=== PATIENT | male | born 1960 | race Caucasian/White ===

== ENCOUNTER → 2021-08-31 15:20 | Outpatient (CLI) | payer OTHER, SELFPAY ==
--- NOTE | 2021-08-31 15:22 | DI.MRI.S_ITS ---
PROCEDURE: MR LUMBAR SPINE WO CON INDICATIONS: Collapsed vertebra, not elsewhere classified, site TECHNIQUE: Noncontrast sagittal T1 spin echo and T2 fast echo, sagittal STIR, axial T1 and T2 fast spin echo through the lumbar spine. In cases with scoliosis, additional coronal T2 fast spin echo may be performed. COMPARISON: None. FINDINGS: Image quality: Excellent. Alignment and Curvature: Approximately 3 millimeter anterolisthesis of L4 on L5. Otherwise normal lumbar vertebral body height and alignment. Bone Marrow: Normal bone marrow signal intensity without suspicious focal marrow signal abnormality or bone marrow edema. Spinal Cord: Normal position and appearance of the conus. Regional Soft Tissues: No paravertebral masses. T12-L1: No spinal canal or neural foraminal stenosis. L1-L2: No spinal canal or neural foraminal stenosis. L2-L3: Disc bulge flattens the ventral thecal sac without mass effect upon the traversing L3 nerve roots. Foraminal components of the disc bulge and facet hypertrophy combine to produce mild bilateral neural foraminal stenosis. L3-L4: Disc bulge flattens the ventral thecal sac and displaces the descending L4 nerve roots within both subarticular zones. Foraminal components of the disc bulge and facet hypertrophy combine to produce mild bilateral neural foraminal stenosis. Small facet effusions noted. L4-L5: Disc bulge and a superimposed broad-based posterior disc protrusion combine with pseudo-bulge related to the anterolisthesis to produce severe spinal canal stenosis. There is also contribution from bulky facet hypertrophy and buckling of the ligamentum flavum. These factors all combine to produce moderate left and mild right neural foraminal stenosis. Large facet effusion on the right. L5-S1: Disc bulge flattens the ventral thecal sac. No mass effect upon the S1 nerve roots. No neural foraminal stenosis. IMPRESSION: Multifactorial degenerative changes in the lower lumbar spine, most pronounced at L4-L5 where there is degenerative anterolisthesis combining with spondylitic and spondyloarthropathic changes to produce severe spinal canal stenosis and moderate left neural foraminal stenosis. Dictated by: Mateo Hidalgo M.D. on 08/31/2021 at 15:05 Approved by: Mateo Hidalgo M.D. on 08/31/2021 at 15:14
== END ==
PROVIDERS: Referring Provider Orthopaedic Surgery Orthopaedic Surgery of the Spine; Visit Provider Orthopaedic Surgery Orthopaedic Surgery of the Spine
DX: M47.816 Spondylosis without myelopathy or radiculopathy, lumbar region (principal); M48.50XS Collapsed vertebra, not elsewhere classified, site unspecified, sequela of fracture; M48.061 Spinal stenosis, lumbar region without neurogenic claudication
CPT/HCPCS: 72148

== ENCOUNTER → 2021-10-12 14:15 | Outpatient (CLI) | payer OTHER, SELFPAY ==
[2021-10-12 15:09] LABS: Add Manual Diff / Slide Review NO; Basophils Absolute Auto 100 /uL (0-100); Basophils Percent Auto 0.9 % (0-2); Eosinophils Absolute Auto 100 /uL (0-450); Eosinophils Percent Auto 1.8 % (2-4); Hematocrit 48.4 % (41-53); Hemoglobin 16.5 g/dL (13.5-17.5); Lymphocytes Absolute Auto 1600 /uL (1100-4500); Lymphocytes Percent Auto 20.7 % (25-40); Mean Corpuscular Hemoglobin 33.6 PG (26-34); Mean Corpuscular Volume 98.8 fL (80-100); Monocytes Absolute Auto 900 /uL (0-900); Neutrophils Absolute Auto 5000 /uL (1500-7000); Neutrophils Percent Auto 64.6 % (50-75); Platelet Count 174 X10^3/uL (150-400); Red Blood Cell Count 4.89 X10^6/uL (4.5-5.9); Red Cell Distribution Width 13.4 % (11.6-14.8); White Blood Cell Count 7.8 X10^3/uL (4.5-11.0)
[2021-10-12 15:27] LABS: BUN Creatinine Ratio 38.2 (6-22); Blood Urea Nitrogen 29 mg/dL (9-20); Calcium 9.3 mg/dL (8.4-10.2); Carbon Dioxide 28 mmol/L (22-32); Chloride 102 mmol/L (98-107); Estimated Glomerular Filt Rate > 60.0 mL/min (>60); Glucose 129 mg/dL (80-110); HEMOLYSIS < 15 (0-50); Potassium 4.3 mmol/L (3.4-5.1); Sodium 139 mmol/L (137-145)
[2021-10-12 15:44] LABS: Hemoglobin A1C% w Est Avg Glu 5.7 % (4.0-6.0)
== END ==
PROVIDERS: PCP Family Medicine; Referring Provider Orthopaedic Surgery Orthopaedic Surgery of the Spine; Visit Provider Orthopaedic Surgery Orthopaedic Surgery of the Spine
DX: Z01.812 Encounter for preprocedural laboratory examination (principal); Z01.818 Encounter for other preprocedural examination; R73.9 Hyperglycemia, unspecified
CPT/HCPCS: 36415; 80048; 83036; 85025; 93005; 93010

== ENCOUNTER 2021-11-15 12:51 | Day surgery (SDC) | payer OTHER, SELFPAY ==
[2021-10-10 08:38] VITALS: BMI 35.3
[2021-11-15] VITALS (17 sets, daily range): BP systolic 142–190; BP diastolic 78–112; PULSE 73–87; RESP 12–18; TEMP 36.3–37.9; O2SAT 92–98; BMI 34.3
--- NOTE | 2021-11-15 | DI.RAD.S_ITS ---
PROCEDURE: XR LUMBAR SPINE 2-3V INDICATIONS: L4-5 TLIF TECHNIQUE: 3 views of the lumbar spine were acquired. COMPARISON: None. FINDINGS: Bones: Postsurgical changes compatible with L4-L5 TLIF. Orthopedic hardware is in expected position. Orthopedic hardware is intact. Soft tissues: Overlying bowel gas pattern is normal. No suspicious soft tissue calcifications. IMPRESSION: Expected postsurgical change for L4-L5 TLIF. Dictated by: Patricia Durham MD, PhD on 11/16/2021 at 9:56 Approved by: Patricia Durham MD, PhD on 11/16/2021 at 9:56
[2021-11-15] MEDS: LACTATED RINGERS 1,000 ML 42 ML IV ×2 (13:48→16:37)
--- NOTE | 2021-11-15 15:22 | PM.HP.1 ---
History of Present Illness History of Present Illness Date Patient Seen: 11/15/21 Time Patient Seen: 15:22 Date of Onset of Symptoms: 04/04/21 Chief complaint: OPB Narrative: Mr. Slaughter is a 61 yo M with hx of worsening left leg pain, weakness and numbness. Patient failed conservative care and is scheduled for L4-5 TLIF. Patient History Medical History Arthritis CAD (coronary artery disease) Excessive daytime sleepiness HLD (hyperlipidemia) Hypertension Impaired fasting glucose Lumbar pain with radiation down both legs Non-STEMI (non-ST elevated myocardial infarction) (11/2013) Obstructive sleep apnea of adult Primary insomnia Sciatica Tobacco dependence due to cigarettes Surgical History S/P CABG (coronary artery bypass graft) (2013) Family & Social History Social History: household members none Prior Living Arrangements House lives independently Yes caregiver/support person No Safety & Behavioral: Feels Safe in Current Yes Environment Been Physically Hurt or No Threatened By a Person Suicidal Ideation Description None Suicide Plan Description No Plan Tobacco & Substance use: Tobacco type cigarettes Smoking Status Current every day smoker alcohol intake current alcohol intake frequency 0-2 drinks per day Substance Use Type does not use Meds Home Medications and Allergies Home Medications Medication Instructions Recorded Confirmed Type losartan 25 mg tablet 25 mg PO QPM 05/06/18 11/15/21 History pravastatin 80 mg tablet 80 mg PO DAILY 05/06/18 11/15/21 History Respironics Dreamstation CPAP #1 ea 11/20/18 02/17/19 History acetaminophen 650 mg 1,300 mg PO BID 10/10/21 11/15/21 History tablet,extended release aspirin 81 mg tablet,delayed 81 mg PO BID 10/10/21 11/15/21 History release (Aspirin Low Dose) ibuprofen 200 mg tablet (Advil) 400 mg PO BID 10/10/21 11/15/21 History losartan 50 mg tablet 50 mg PO QAM 10/10/21 11/15/21 History metoprolol succinate 50 mg 25 mg PO BID 10/10/21 11/15/21 History tablet,extended release 24 hr bupropion HCl 75 mg tablet 75 mg PO BID 11/15/21 11/15/21 History Allergies Allergy/AdvReac Type Severity Reaction Status Date / Time Penicillins Allergy Severe Rash Verified 11/15/21 13:25 Exam Vital Signs (past 8 hours): - 11/15/21 13:29 Temperature 98.2 F Pulse Rate 87 Respiratory Rate 16 Blood Pressure 184/98 H Pulse Oximetry 96 Oxygen Delivery Method Room Air Oxygen Flow Rate 0 Neuro Other: + straight leg raise to LLE, sensibility decreased to left L4 dermatome, motor strength 4/5 in left TA and EHL. Assessment & Plan Assessment & Plan narrative: Mr. Slaughter is here for treatment of lumbar radiculopathy due to spinal stenosis and spondylolisthesis at L4-5 level. Risks for surgery include but not limited to bleeding, infection, nerve/dura/bladder/bowel/blood vessel injury, need for additional procedure, even . Pt understands and would like to proceed with surgery. I scheduled him for L4-5 TLIF. Time Spent With Patient Critical Care time: I spent a total of [] minutes of critical care time on this patient's care today; this time is exclusive of procedural time.
[2021-11-15] MEDS: CLINDAMYCIN 900 MG/50 ML PIGGYBACK 50 MG IV (15:48)
--- NOTE | 2021-11-15 16:07 | SUR.OPER ---
Prone on spine table, head in foam head support, padded chest and pelvic supports, gel pad at knees, lower legs supported by pillows; nipples, genitalia and toes free of pressure, arms secured on foam padded arm boards at <90 degrees abduction. Tape over blanket at thigh secured to table.
[2021-11-15] MEDS: BUPIVACAINE LIPOSOME 266 MG/20 ML VIAL INJ (16:18)
[2021-11-15] MEDS: BUPIVACAINE 0.25% W/ EPI 30 ML VIAL INJ (16:19)
--- NOTE | 2021-11-15 17:54 | P.OP_ITS ---
Operative Date/Time/Diagnoses Date of procedure: 11/15/21 Time of procedure: 15:00 Pre-op diagnosis: 1. L4-5 spondylolisthesis 2. L4-5 spinal stenosis with radiculopathy Post-op diagnosis: same Procedure & Clinicians Procedure: 1. L4-5 Postero-lateral and posterior interbody fusion 2. L4-5 interbody cage placement. 3. L4-5 decompressive laminectomy with bilateral facetecomies 4. L4-5 Posterior non-segmental instrumentation 5. [place] of bone marrow from iliac crest 6. Utilization of microsurgical technique and operating microscope Same procedure as scheduled: Yes Indications: Patient has been having chronic back pain and worsening lumbar radiculopathy. Patient failed multiple conservative management with worsening pain weakness and numbness in her lower extremity. Patient has been having difficulty performing activity of daily living. After discussing risks benefits of treatment options, patient elected proceed with surgery. Surgeon: Joy Saez Hoisting Pile Driving Engineer: Joslyn Radford Click Yes if Unassisted: No Anesthesia Type: General Operative Notes Closure Type: primary Specimen(s): none sent Prosthetic devices, grafts, tissues, transplants, or devices: Globus Revolve screws, Rise cage Estimated Blood Loss (mL): 50 Blood products transfused: none Procedure in detail: Patient was seen in the preoperative area. Risks and benefits of the surgery was discussed with the patient. Informed consent was obtained from the patient and placed in the chart. Surgical site was marked. Patient was taken to the operative room. General anesthesia was administered. Prophylactic antibiotic was given to the patient less than 30 min before the incision was made. Patient was placed into a prone position on the Steven table. Patient's back was then prepped and draped in the sterile fashion. Time-out was performed at this time. Using AP and lateral C-arm imaging the interval between L4-5 was identified and marked on patient's back. A 2 inch incision 2 in from midline was made on the left side first. The fascia was incised in line with skin incision. Globus MARS retractors was placed inside the incision and docked onto the L4 lamina. Using microsurgical technique and operating microscope, a L4 laminectomy and L4-5 fac etectomy was performed using a Kerrison rongeur. The disc space at L4-5 was identified. And a total diskectomy was performed at L4-5 level. The endplates were decorticated using a rasp and shaver. Patient was found have severe central and neuroforaminal stenosis. Patient was fully decompressed after the laminectomy and facetectomy was completed. The decompression rendered the L4-5 level grossly unstable and required a fusion procedure at the same time. The total diskectomy and decortication was performed at L4-5 level in order to to accomplish a L4-5 fusion. The local bone from the laminectomy and facetectomy was saved for local bone grafting. After the total diskectomy and decortication was completed, Trifecta bone graft material was combined with local bone that was harvested earlier. At this time, a separate skin is incision was made over the iliac crest. A Jamshidi needle was inserted into the iliac crest through a separate skin incision. 5 cc of bone marrow aspiration was obtained through the separate skin incision using a Jamshidi needle from the iliac crest. The bone marrow aspiration was combined with local bone and the Trifecta bone grafting material. The bone grafting material was placed into the L4-5 interbody space along with a expandable cage. The cage was expanded to its maximum height using the torque limiting screwdriver. At this time a mirror image incision was made on the right side. The fascia was incised in line with the skin incision. Globus MARS retractor was inserted and docked onto the L4-5 posterolateral gutter. Using the power drill, posterior- lateral decortication was performed at L4-5 level until bleeding cortical bone was identified. The remaining bone grafting material was placed into the L4-5 posterior lateral gutter he order to accomplish posterolateral fusion at the L4- 5 level. Using the double C-arm technique, pedicle screws were placed into the L4-5 pedicles bilaterally. This was done by placing the Jamshidi needle into the pedicles, then placing the guidewires over the Jamshidi needle, and finally placing the cannulated screws over the guidewires bilaterally. After the pedicle screws were placed, 2 titanium rods was locked into the heads of the pedicle screws using locking caps and torque limiting screwdriver. After all the hardware was placed, and confirmed with AP and lateral C-arm imaging, the wound was then irrigated with sterile normal saline and packed with Ray-Jessi gauze for 3 min to accomplish hemostasis. After the gauze was removed the deep fascia was closed with #1 Vicryl suture. The subcutaneous layer was closed with 2-0 Vicryl. The skin was closed with skin neto. Patient tolerated the procedure well. There were no complications. Complications: none Post-operative Condition: stable Disposition: PACU Plan for aftercare: Admit to inpatient hospital
[2021-11-15] MEDS: HYDROMORPHONE 2 MG INJ IV ×4 (18:15→18:50)
[2021-11-15] MEDS: LABETALOL 20 MG/4 ML SYRINGE IV (18:35)
[2021-11-15] MEDS: OXYCODONE/ACETAMINOPHEN 5/325 TABLET 1 TAB PO (19:09)
[2021-11-15] MEDS: SODIUM CHLORIDE 0.9% 1,000 ML 100 ML IV (20:11)
[2021-11-15] MEDS: HYDROMORPHONE 0.5 MG INJ IV (20:11)
--- NOTE | 2021-11-15 20:17 | SUR.PHASEI ---
11/15/21 Pacu NOTE 1810*-patient recieved from OR via bed. monitors on . vss. oxygen sats down at 93%-nasal canula applied at [address] Sommers's request-due to sleep apnea history/no cpap used. dressing on back cdi. no drains. Facial area skin redness noted-patient states came on yesterday-cause unknown. 1814-patients temperture and skin feel warm/dry. mottled patches on back and front/back of legs noted. PSYCHIATRIC TECHNICIAN ASSISTANT not recieving RN, unaware, ? positioning. continue to monitor. patient denies pain, but relates it to pressure in back,tense and flexing/moving around. Dr Jara to write orders. 1829-overriding medications and attempting to rewrite orders in computer for pacu care, due to technical issues with MD's code. Titration of dilaudid for pain, and now labetalol for bp done. Repositioned to rt side wwith pillows to assist with comfort. continue to titrate Dilaudid ivp. 1899-mottling colorations lighting up but now noted lower abdomen/back/legs. temperture rechecked prn and wnl. patient denies being cold .skin warm and dry. 1919-Report called to floor. BP down wnl for patient per anesthesia after 2 nd dose of labetalol. patient remains wide awake,alert,oriented. more comofortable and resting on side-pain 4/10. no periods of apnea or desating. Remains on 2l nc.dentures (Up/lower) reworn by patient now. Transferred to room on 2l oxygen nc via bed. 2 bags of belongings. no family he reports til am. csm remain good to ble. dressing on back cdi. 1929-handoff in room done with RN. Patient had 250 ml in . now feels like can pee. VEHICLE MONITOR TECHNICIAN at side to assist. Pacu Meds/Reassessment: recieved total 2 mg iv dilaudid for pain, 2o mgs labetalol for htn. percocet 1 tab for pain. all effective. BP on transfer 164/95. HR 78. pain 4/10 & Relates feels better.
[2021-11-15] MEDS: SENNOSIDES 8.6 MG TABLET 17.2 MG PO (21:29)
[2021-11-15] MEDS: DOCUSATE 100 MG CAPSULE PO (21:29)
[2021-11-15] MEDS: buPROPion 75 MG TABLET PO (21:29)
[2021-11-15] MEDS: METOPROLOL ER 50 MG TABLET 25 MG PO (21:29)
[2021-11-16 00:10] VITALS: BP 138/76; PULSE 78; RESP 16; TEMP 36.6; O2SAT 92
[2021-11-16] MEDS: CLINDAMYCIN 900 MG/50 ML PIGGYBACK 50 MG IV ×2 (00:58→09:50)
[2021-11-16] MEDS: OXYCODONE/ACETAMINOPHEN 5/325 TABLET 2 TAB PO ×3 (02:20→12:20)
[2021-11-16 04:29] VITALS: BP 144/83; PULSE 79; RESP 16; TEMP 36.8; O2SAT 96
--- NOTE | 2021-11-16 07:27 | PM.DS.1 ---
History of Present Illness History of Present Illness Date Patient Seen: 11/16/21 Time Patient Seen: 07:27 Chief complaint: Back pain Narrative: Pain is been [id number]. Denies fever or chills. No nausea or vomiting. Patient has his son at home who can assist him. Discharge Providers Provider Discharge Date: 11/16/21 Primary care physician: Linda Leroy MD Consults: 11/15/21 19:50 Consult to Occupational Therapy Evaluate & Treat Comment: Physician Instructions: Evaluate and treat Consult to Physical Therapy Evaluate & Treat Comment: Physician Instructions: Evaluate and Treat Discharge provider: Fortunato Be PA-C Summary Hospital Course Discharge Diagnosis: 1. L4-5 spondylolisthesis 2. L4-5 spinal stenosis with radiculopathy Hospital Course: 1. L4-5 Postero-lateral and posterior interbody fusion 2. L4-5 interbody cage placement. 3. L4-5 decompressive laminectomy with bilateral facetecomies 4. L4-5 Posterior non-segmental instrumentation 5. [place] of bone marrow from iliac crest 6. Utilization of microsurgical technique and operating microscope Same procedure as scheduled: Yes Indications: Patient has been having chronic back pain and worsening lumbar radiculopathy. Patient failed multiple conservative management with worsening pain weakness and numbness in her lower extremity.? Patient has been having difficulty performing activity of daily living.? After discussing risks benefits of treatment options, patient elected proceed with surgery. Surgeon: Joy Saez Substation Design Draftsperson: Joslyn Radford Click Yes if Unassisted: No Anesthesia Type: General Operative Notes Closure Type: primary Specimen(s): none sent Prosthetic devices, grafts, tissues, transplants, or devices: Globus Revolve screws, Rise cage Estimated Blood Loss (mL): 50 Blood products transfused: none Patient admitted to the hospital for the above-mentioned procedure. Patient consented to the same. Patient taken to the operating room on November 15, 2021. Patient back in his room recovering well as in stable condition. Patient work with physical therapy and be discharged home today in stable condition. Status at Discharge Cognitive/behavioral status at discharge: at baseline, oriented Functional status at discharge: uses cane/walker Overall status at discharge: patient is progressing back to baseline Exam Vital Signs (past 8 hours): - 11/16/21 00:10 11/16/21 04:29 Temperature 97.9 F 98.2 F Pulse Rate 78 79 Respiratory Rate 16 16 Blood Pressure 138/76 144/83 H Pulse Oximetry 92 96 Oxygen Delivery Method Nasal Cannula Oxygen Flow Rate 2 Narrative Exam Narrative: 61-year-old male resting comfortably in bed in no apparent distress. Motor functions intact bilateral lower extremities. Sensation grossly intact to light touch bilateral lower extremities. Scant drainage on the dressing otherwise dressings are intact. Const General: cooperative Orientation: alert Resp Effort & Inspection: normal respiratory effort and able to speak in complete sentences PFSH Medical History Arthritis CAD (coronary artery disease) Excessive daytime sleepiness HLD (hyperlipidemia) Hypertension Impaired fasting glucose Lumbar pain with radiation down both legs Non-STEMI (non-ST elevated myocardial infarction) (11/2013) Obstructive sleep apnea of adult Primary insomnia Sciatica Tobacco dependence due to cigarettes Surgical History S/P CABG (coronary artery bypass graft) (2013) Social History marital status: number of children: 1 household members: none lives independently: Yes caregiver/support person: No occupational status: employed 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 Smoking Status: Current every day smoker alcohol intake: current substance use type: does not use Discharge Assessment & Plan Assessment and Plan Assessment: Patient progressing as expected Plan of Treatment: Mobilize with physical therapy, limit bending, lifting, twisting Multimodal pain management Discharge home today after physical therapy if safe for home environment Discharge Plan Discharge Plan Patient Disposition: Home Discharge orders & Medications Discharge Orders: Discharge (Order); Ordered 11/16/21 Ordered By: Fortunato Be Prescriptions: New acetaminophen 325 mg Tablet 650 mg PO Q6HR PRN (Reason: Pain, Mild (1-3)) Qty: 60 0RF docusate sodium 100 mg Capsule 100 mg PO BID Qty: 20 0RF hydroxyzine pamoate 25 mg Capsule 25 mg PO Q4HR PRN (Reason: Nausea And Vomiting) Qty: 30 0RF oxycodone 5 mg tablet 5 mg PO Q3H PRN (Reason: pain) Qty: 60 0RF Rx Instructions: 1-2 tabs PO every 3 hours prn pain Continued losartan 50 mg Tablet 50 mg PO QAM 0RF metoprolol succinate 50 mg Tablet Extended Release 24 Hr 25 mg PO BID 0RF bupropion HCl 75 mg Tablet 75 mg PO BID 0RF pravastatin 80 mg tablet 80 mg PO DAILY 0RF losartan 25 mg tablet 25 mg PO QPM 0RF (DME) Respironics Dreamstation CPAP Qty: 1 0RF Dose Instruction: As directed Label Comments: Pressure: 5-10 cmH2O DME: [facility] Rx Instructions: As directed Discontinued aspirin [Aspirin Low Dose] 81 mg Tablet,Delayed Release (Dr/Ec) 81 mg PO BID 0RF acetaminophen 650 mg Tablet Extended Release 1,300 mg PO BID 0RF ibuprofen [Advil] 200 mg Tablet 400 mg PO BID 0RF Follow up/Referrals: Linda Leroy MD [Primary Care Provider] - oJy Saez MD [Physician] - (2 weeks) Diet/Activity/Treatments Diet: Diet as Tolerated Activity: Limit bending, twisting, lifting Skin/Wound/Dressing Care Report to your healthcare provider any signs of infection, such as:: chills, fever, increased pain, unusual drainage and unusual redness Dressing: Keep dressing clean and dry Visit Report/Discharge Packet Instructions: DI for Transforaminal Lumbar Interbody Fusion Stand Alone Forms: Surgery Discharge Discharge Data Primary Care Provider: Linda Leroy Attending Provider: Joy Saez Quality VTE Deep Vein Thrombosis/Pulmonary Embolism Present on Admission: Yes
[2021-11-16 08:23] VITALS: BP 134/65; PULSE 70
[2021-11-16] MEDS: METOPROLOL ER 50 MG TABLET 25 MG PO (08:23)
[2021-11-16] MEDS: hydrOXYzine pamoate 25 MG CAPSULE PO (08:23)
[2021-11-16 08:26] VITALS: BP 134/65; BP 134/69; PULSE 70; RESP 14; TEMP 37.1; O2SAT 95
[2021-11-16] MEDS: LOSARTAN 50 MG TABLET PO (08:26)
[2021-11-16] MEDS: buPROPion 75 MG TABLET PO (08:26)
[2021-11-16] MEDS: DOCUSATE 100 MG CAPSULE PO (08:26)
--- NOTE | 2021-11-16 09:15 | PT.IIE ---
Current Diagnoses Spondylolisthesis, lumbar region (11/15/21) Spinal stenosis, lumbar region without neurogenic claudication (11/15/21) Surgery Performed Operation Date: 11/15/21 14:45 Actual Procedures p L4-5 TLIF - Joy Saez MD Medical History (Last Reviewed 11/16/21 @ 07:29 by Fortunato Be PA-C) Arthritis CAD (coronary artery disease) Excessive daytime sleepiness HLD (hyperlipidemia) Hypertension Impaired fasting glucose Lumbar pain with radiation down both legs Non-STEMI (non-ST elevated myocardial infarction) (11/2013) Obstructive sleep apnea of adult Primary insomnia Sciatica Tobacco dependence due to cigarettes Physical Therapy Inpatient Evaluation/Re-Eval M1 PT/OT-IP Prior Functional Status Start: 11/16/21 11:43 Freq: NEEDED Status: Active Protocol: Document 11/16/21 09:15 AB (Rec: 11/16/21 11:55 AB [id number]) Medical Review Prior Functional Status Medical History Reviewed Yes Communication able to make needs known Mobility and Gait pt stated that he is independent with all mobilities and ambulation without AD Social History Household Members none Living Arrangements House Number of Floors (Floors) One Floor Number of Stairs To Enter/Railing? 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 PT-IP Current Condition Start: 11/16/21 11:43 Freq: NEEDED Status: Active Protocol: Document 11/16/21 09:15 AB (Rec: 11/16/21 11:55 AB [id number]) Physical Therapy Current Condition Current Condition Evaluation Date 11/16/21 Treatment Diagnosis s/p L4-5 TLIF; difficulty in walking Onset Date 11/15/21 M3 PT-IP Subjective Start: 11/16/21 11:43 Freq: NEEDED Status: Active Protocol: Document 11/16/21 09:15 AB (Rec: 11/16/21 11:55 AB [id number]) Subjective Physical Therapy Visit Type Type Initial Evaluation Visit Start Time 09:15 Visit Stop Time 10:05 Total Visit Minutes 50 Number of DICTATING TRANSCRIBING MACHINE SERVICER Visits 0 Physical Therapy Visit Comments Patient Comments agreeable to do PT Therapy Pain Assessment Pain Present Pain Present Denied Pain M4 PT-IP Mobility and Gait Start: 11/16/21 11:43 Freq: NEEDED Status: Active Protocol: Document 11/16/21 09:15 AB (Rec: 11/16/21 11:55 AB [id number]) PT-Bed Mobility Assessment Rolling Type of Rolling Log Rolling Level of Assist Standby Assistance Supine to Sit Supine to Sit Standby Assistance Sit to Supine Sit to Supine Standby Assistance Scooting Scooting to Edge of Bed Standby Assistance PT-Transfer Assessment Sit to and From Stand Sit to and from Stand Standby Assistance Equipment Transfer Assistive Device Gait Belt,Front Wheeled Walker Orthotic/Prosthetic Devices or Brace: No Transfers Transfer Destination Toilet Transfer Technique ambulated Transfer Ability Level of Assist Standby Assistance,1 Person Assistance Comments Mobility Comments pt was standing up by his bed without AD but holding on to table with NAC in room. instructed pt to sit on EOB and educated on safety. educated pt on back precautions. pt requesting to use the toilet. completed sit to stand from EOB SBA and ambulated to the toilet using FWW SBA. educated on safety and maintain back precautions as pt tends to turn and twist. pt ambulated out towards the sink using FWW SBA and was able to maintain standing SBA while completing handwashing. pt ambulated to the chair SBA using FWW. pt rested and educated on log roll bed mobility. pt completed step transfer from chair to bed using FWW SBA. completed log roll bed mobility x 2 sets. SBA but required instructions on first attempt but able to do with lesser cues on 2nd attempt. pt ambulated in room ~ 75 ft using FWW SBA. pt agreed to sit on chair. positioned on chair. call light and table placed within reach. educated and reviewed precautions and safety with pt . pt without any concerns. informed nurse. Gait Assessment Gait Gait Assistance Required: Standby Assistance Distance (Feet) 75 Able to Maintain Weight Bearing Status Yes During Gait Assistive Devices Assistive Device Gait Belt,Front Wheeled Walker Orthotic/Prosthetic Devices or Brace: No Gait Deviations General Gait Pattern Decreased Stride Length, Decreased Feet Clearance Factors Limiting Gait Function Factors Limiting Gait Function Decreased Activity Tolerance, Decreased Strength,Limited Range of Motion,Pain,Poor Balance,Poor Safety Awareness PT-Balance Assessment Sitting Balance and Reactions Static Sitting Balance Ability Normal Dynamic Sitting Balance Ability Normal Standing Balance and Reactions Static Standing Balance Ability Good Dynamic Standing Balance Ability Fair Device Used FWW M5 PT-IP Objective Assessments Start: 11/16/21 11:43 Freq: NEEDED Status: Active Protocol: Document 11/16/21 09:15 AB (Rec: 11/16/21 11:55 AB [id number]) Orientation Orientation/Cognition Level of Alertness Alert Orientation Name,Age,Birthday,Month,Date, Year,Day of Week,Place, Situation Language Function Ability No Deficits Noted Safety Awareness Understands Safety Issues Memory Description No Deficits Noted Gross Range of Motion Lower Extremity ROM Assessment Within Functional Limits Strength Comments Strength Comments RLE: 4+/5 LLE: 4/5 Coordination Assessment Gross Coordination Gross Coordination WNL Sensation Assessment Sensation Gross Sensation WNL Muscle Tone Muscle Tone WNL Yes M6 PT-IP Treatment Start: 11/16/21 11:43 Freq: NEEDED Status: Active Protocol: Document 11/16/21 09:15 AB (Rec: 11/16/21 11:55 AB [id number]) Physical Therapy Treatment Education Education Provided Precautions,Weight Bearing Status,Post-Op Packet,Safety M7 PT-IP Assessment and Plan Start: 11/16/21 11:43 Freq: NEEDED Status: Active Protocol: Document 11/16/21 09:15 AB (Rec: 11/16/21 11:55 AB [id number]) PT Summary Assessment and Plan Potential Rehabilitation Potential Good Status of Condition at Evaluation Stable Summary Impairments Pain,ROM,Strength,Balance, Coordination,Sensation,Tone, Cognition,Bed Mobility, Transfers,Gait,Activity Tolerance Assessment Summary pt requiring SBA with mobility and plans to go home and son will stay with him for ~ 2 weeks to assist him. pt may go home when medically stable. Goals Bed Mobility Goal Independent Transfer Goal Independent,Front Wheeled Walker Gait Goal Independent,Front Wheel Walker Gait Distance 250 Days to Meet Goals 3 Frequency of Treatment Frequency Of Treatment Twice a Day Treatment Plan Physical Therapy Treatment Plan Bed Mobility Training,Transfer Training,Gait Training, Therapeutic Exercise,Balance Retraining,Post Op Education, Discharge Planning,Hot or Cold Pack,Neuromuscular Re-ed, Coordination Retraining,Manual Therapy Precautions Lumbar Precautions Log Roll,No Twisting,Limit Bending,Lifting Restriction of 10 lbs,Gait Belt above Incisional Area Recommendations To Nursing Amount of Assist Needed Standby Assistance Discharge Recommendations PT Discharge Recommendations Home with Assistance Transportation Needs at Discharge Private Vehicle
--- NOTE | 2021-11-16 10:50 | OT.IP.EVAL ---
Current Diagnoses Spondylolisthesis, lumbar region (11/15/21) Spinal stenosis, lumbar region without neurogenic claudication (11/15/21) Surgery Performed Operation Date: 11/15/21 14:45 Actual Procedures p L4-5 TLIF - Joy Saez MD Past Medical History (Last Reviewed 11/16/21 @ 07:29 by Fortunato Be PA-C) Arthritis CAD (coronary artery disease) Excessive daytime sleepiness HLD (hyperlipidemia) Hypertension Impaired fasting glucose Lumbar pain with radiation down both legs Non-STEMI (non-ST elevated myocardial infarction) (11/2013) Obstructive sleep apnea of adult Primary insomnia S/P CABG (coronary artery bypass graft) (2013) Sciatica Tobacco dependence due to cigarettes Surgical History (Last Reviewed 11/16/21 @ 07:29 by Fortunato Be PA-C) S/P CABG (coronary artery bypass graft) (2013) Occupational Therapy Inpatient Evaluation/Re-Eval M1 PT/OT-IP Prior Functional Status Start: 11/16/21 11:43 Freq: NEEDED Status: Active Protocol: Document 11/16/21 10:20 [facility] (Rec: 11/16/21 12:54 [facility] [id number]) Medical Review Prior Functional Status Medical History Reviewed Yes Communication able to make needs known Mobility and Gait pt stated that he is independent with all mobilities and ambulation without AD Activities of Daily Living and IADL's Pt states needing increased time to do his ADL needs and unable to adis left sock at this time. Pt states limited with IADl needs. Social History Household Members none Living Arrangements House Number of Floors (Floors) One Floor Number of Stairs To Enter/Railing? 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 OT-IP Current Condition Start: 11/16/21 10:55 Freq: Status: Active Protocol: Document 11/16/21 10:20 [facility] (Rec: 11/16/21 12:54 [facility] [id number]) Occupational Therapy Current Condition Current Condition Evaluation Date 11/16/21 Treatment Diagnosis s/p L4-5 TLIF Diagnosis Onset Date 11/15/21 Post Operative Precautions Lumbar Precautions Log Roll,No Twisting,Limit Bending,Lifting Restriction of 10 lbs,Gait Belt above Incisional Area M3 OT- IP Subjective and Pain Start: 11/16/21 10:55 Freq: Status: Active Protocol: Document 11/16/21 10:20 [facility] (Rec: 11/16/21 12:54 [facility] [id number]) OT- Subjective Occupational Therapy Visit Type Type Initial Evaluation Visit Start Time 10:20 Visit Stop Time 10:50 Total Visit Minutes 30 Occupational Therapy Visit Comments Patient Comments Pt agreed to work with OT in order to get dressed. Patient/Caregiver Goals To go home. OT Pain Assessment Pain When Pain Assessed At Rest Pain Present Pain Present Pain Reported Location Lower Back Intensity 4 Scale Used Numeric (0 - 10) M4 OT- IP ADL's Start: 11/16/21 10:55 Freq: Status: Active Protocol: Document 11/16/21 10:20 [facility] (Rec: 11/16/21 12:54 [facility] [id number]) OT OAJ-Hwtc-Nmsyayt General Evaluation Self-Feeding Ability Independent OT ADL-Dressing General Eval Upper Body Dressing Ability Independent Lower Body Dressing Ability Standby Assistance,Maximum Assistance Areas Needing Assistance Socks,Shoes Comments OT Dressing Comments Pt able to practice with LB dressing equipment to be able to adis/doff the socks/pants. Pt states to look into getting a sock aid. OT ADL-Bathing Comments OT Bathing Comments Pt not wanting to shower at this time. M5 OT- IP IADL's Start: 11/16/21 10:55 Freq: Status: Active Protocol: Document 11/16/21 10:20 [facility] (Rec: 11/16/21 12:54 [facility] [id number]) OT-Instrumental Activities of Daily Living Home Safety Awareness Awareness of Need for Assistance at Home Good Awareness Ability to Problem Solve Emergency Able to Problem Solve Situations Home Safety Comments Pt's son to be home to be able to assist pt for all needs. Meal Preparation Meal Preparation Caregiver Provides Assist Suit Maker Suit Maker Caregiver Provides Assist M6 OT- IP Functional Cognition Start: 11/16/21 10:55 Freq: Status: Active Protocol: Document 11/16/21 10:20 [facility] (Rec: 11/16/21 12:54 [facility] [id number]) Cognitive Factors Limiting Selfcare Function Cognitive Ability Level of Alertness Alert Patient Orientation Name,Age,Birthday,Month,Date, Year,Day of Week,Place, Situation Attention Span Ability Capable of Focused Attention, Capable of Sustained Attention Ability to Follow Commands Able to Follow Multi-Step Commands Memory Description No Deficits Noted Safety Awareness Decreased Ability to Apply Precautions Cognitive Comments Cognitive Assessment Comments Pt needing assist for reminders to incorporate his back precautions. Suggested to put on copies of his back precautions to help remind him at home. OT- Vision and Hearing OT- Hearing Assessment OT- Hearing Assessment WFL OT- Vision Assessment Visual Acuity Glasses For Reading M7 OT- IP Mobility and Balance Start: 11/16/21 10:55 Freq: Status: Active Protocol: Document 11/16/21 10:20 [facility] (Rec: 11/16/21 12:54 [facility] [id number]) OT- Bed Mobility Assessment Rolling Type of Rolling Roll to Right Level of Assistance Standby Assistance Supine to Sit Supine to Sit Assist Standby Assistance Sit to Supine Sit to Supine Assist Standby Assistance OT-Transfer Assessment Sit to and From Stand Sit to and from Stand Standby Assistance Transfers Transfer Ability Standby Assistance Technique Transfer Destination Chair Transfer Technique Stand Step Pivot Devices Transfer Assistive Devices None,Gait Belt Comments Mobility Comments SBA with no device. Pt needing reminders to incorporate his back precautions as pt tends to twist at times. OT- Balance Assessment Sitting Balance and Reactions Static Sitting Balance Ability Normal Dynamic Sitting Balance Ability Good Standing Balance and Reactions Static Standing Balance Ability Good M8 OT- IP Objective Assessments Start: 11/16/21 10:55 Freq: Status: Active Protocol: Document 11/16/21 10:20 [facility] (Rec: 11/16/21 12:54 [facility] [id number]) OT-Muscle Tone Assessment Muscle Tone WNL Yes M9 OT- IP Assessment and Plan Start: 11/16/21 10:55 Freq: Status: Active Protocol: Document 11/16/21 10:20 [facility] (Rec: 11/16/21 12:54 [facility] [id number]) OT Summary Assessment and Plan Potential Rehabilitation Potential Excellent Analytic Complexity at Evaluation Low Summary OT Impairments Pain,Dressing,Bathing Progress Towards Goals Progressing Toward Goals Assessment Summary Pt low complexity and mainly just needing assist for socks , pt to look into getting a sock aid and the his son will assist at this time. Pt's son to assist him at home. Pt looking to borrow a tub bench and FWW from a friend , however a shower chair may be more appropriate for the pt. Goals Grooming Goal Independent Dressing Goal Independent Toileting Goal Independent Bathing Goal Independent Toilet Transfer Goal Independent Shower Transfer Goal Independent Days to Meet Goals 3 Frequency of Treatment Frequency Of Treatment Once a Day Treatment Plan OT Treatment Plan ADL Training,Functional Mobility,Patient/Family Education,Discharge Planning Discharge Recommendations OT Discharge Recommendations Home with Assistance Home Equipment Needs shower chair, sock aid Transportation Needs at Discharge Private Vehicle
--- NOTE | 2021-11-16 13:55 | PC.NURSE ---
Pt A&Ox3. VSS, afebrile on RA. He is able to ambulate without difficulty around the nursing unit SBA. He is voiding without difficulty and reports good pain control with PRN percocet bringing pain level from 6-7/10 down to a tolerable level of 3-4/10. He is cleared by Ortho PA for discharge home and cleared by PT/OT to discharge home. Dressing to back with minimum old dried blood changed. Sunitha are C/D/I with slight bruising surrounding. He veerbalizes understanding of discharge activity, medications, follow up and s/sx of infection as well as site care. RN escorts patient out of facility to private vehicle with son for discharge home at approximately 1245.
--- NOTE | 2021-11-16 15:46 | CM.IDA ---
Initial DCP Assessment Note Patient is a 61 yo male, resident of [place]. POD#1 from TLIF w/Dr Saez DC home today, patient denies needs from CM team; eager to return home w/his sister to assist in his recovery Plan: DC home w/family, no BACTERIOLOGY TECHNICIAN needs JW
== END 2021-11-16 12:45 | disposition home or self-care (01) ==
LOC: OR 12:53 → AC 12:53
PROVIDERS: PCP Family Medicine; Referring Provider Orthopaedic Surgery Orthopaedic Surgery of the Spine; Visit Provider Orthopaedic Surgery Orthopaedic Surgery of the Spine
PROC: (CPT 22853; principal; 2021-11-15 14:45)
DX: M43.16 Spondylolisthesis, lumbar region (principal); M48.061 Spinal stenosis, lumbar region without neurogenic claudication; M54.16 Radiculopathy, lumbar region; I10 Essential (primary) hypertension; I25.10 Atherosclerotic heart disease of native coronary artery without angina pectoris; E66.9 Obesity, unspecified; G47.33 Obstructive sleep apnea (adult) (pediatric); I25.2 Old myocardial infarction; Z95.1 Presence of aortocoronary bypass graft; Z68.35 Body mass index [BMI] 35.0-35.9, adult
CPT/HCPCS: 22853; 22840; 20939; 63052; 22633; 72100; 76000; 82962; 93005; 94762; 97161; 97165; 97530; 97535; C1831; C9290; J0330; J1100; J1170; J2405; J2704; J3010

== ENCOUNTER 2022-05-22 09:15 | Day surgery (SDC) | payer OTHER, SELFPAY ==
[2021-11-28 12:24] VITALS: BMI 34.3
[2022-05-15 08:19] VITALS: BMI 34.3
[2022-05-22] VITALS (15 sets, daily range): BP systolic 105–161; BP diastolic 64–101; PULSE 56–91; RESP 16–36; TEMP 35.6–37; O2SAT 93–98; BMI 34.3
--- NOTE | 2022-05-22 09:17 | DI.RAD.S_ITS ---
PROCEDURE: XR HIP W PEL IF DONE LT 2V INDICATIONS: total left hip TECHNIQUE: AP pelvis and lateral view of the left hip acquired. COMPARISON: [facility] [place], CR, XR PELVIS WITH LATERAL HIP LEFT, 04/21/2019, 8:18. [facility] [place], CR, XR PELVIS WITH LATERAL HIP LEFT, 03/14/2022, 11:37. [facility], CR, XR PELVIS 1-2V, 05/22/2022, 12:12. FINDINGS: Bones: Patient is status post left hip arthroplasty, with hardware components in expected positions. The hip joint appears congruent. The visualized bony structures appear intact. There is moderate right hip joint space narrowing with periarticular osteophyte formation and bony prominence involving the right femoral head/neck junction. Soft tissues: Overlying postoperative changes are noted. No suspicious soft tissue densities. IMPRESSION: 1. Expected immediate postoperative appearance of left hip arthroplasty. 2. Moderate right hip joint degeneration redemonstrated and bony prominence involving the right femoral head/neck junction which can be associated with CAM type femoral acetabular impingement. Dictated by: Herman MANZANARES Interpreted: Aneudy Cruz MD on 05/22/2022 at 16:04 Transcribed by: ASHLEY on 05/22/2022 at 16:06 Approved by: Aneudy Cruz M.D. on 05/22/2022 at 17:00
[2022-05-22] MEDS: LACTATED RINGERS 1,000 ML 42 ML IV ×2 (09:39→12:20)
[2022-05-22] MEDS: VANCOMYCIN 1,000 MG/200 ML PIGGYBACK 200 MG IV (10:04)
[2022-05-22] MEDS: CELECOXIB 200 MG CAPSULE PO (10:24)
[2022-05-22] MEDS: ACETAMINOPHEN 325 MG TABLET 975 MG PO (10:24)
--- NOTE | 2022-05-22 10:44 | P.OP_ITS ---
Operative Date/Time/Diagnoses Date of procedure: 05/22/22 Time of procedure: 11:30 Pre-op diagnosis: left hip OA Post-op diagnosis: same Procedure & Clinicians Procedure: Left total hip arthroplasty posterior approach Same procedure as scheduled: Yes Indications: The patient has had progressively worsening left hip pain with radiographic dale nges consistent with arthritis. Non-operative management has failed and the patient has requested total hip replacement. The risks, benefits and alternatives to surgery were discussed with the patient prior to proceeding. Risks discussed included, but were not limited to, failure to relieve pain, leg length discrepancy, dislocation, stiffness, infection, nerve damage, deep venous thrombosis, pulmonary embolism, stroke, coma, heart attack, permanent paralysis and , as well as the potential need for eventual revision of the prosthetic. Surgeon: Yanira Otero Software Engineer Advisor: Joslyn Radford Anesthesia Type: General and Spinal Operative Notes Findings: Severe left hip OA, adequate bone, adequate stability Closure Type: primary Specimen(s): none sent Prosthetic devices, grafts, tissues, transplants, or devices: Otero [employer]hew R3 54 mm cup, size 3 standard offset anthology a, neutral poly liner, one screw 6.5, -3 oxinium Applied: drain(s) Estimated Blood Loss (mL): 250 Blood products transfused: none Procedure in detail: The patient was seen in the pre-operative area, where the patient identified the left hip as the operative site and this was marked with my initials. The patient received pre-operative antibiotics and was taken to the operating room and placed on the operative table in the right lateral decubitus position after satisfactory anesthesia. A time piece repairer out was performed. The left leg was prepared from the ankle to the iliac crest with ChloroPrep in the usual fashion and draped through sterile drapes. The hip was approached through an approximately 20 cm incision centered over the greater trochanter and curving gently posteriorly as it went proximally. This was carried sharply to the fascia shayy, which was divided and retracted with a self retaining retractor. The trochanteric bursa was excised with care being taken to avoid the sciatic nerve, which was identified and protected throughout the case. The short external rotators were incised and the capsulomuscular flap was raised and tagged for later repair. The hip was dislocated, and a femoral neck osteotomy performed approximately 15 mm above the lesser trochanter. Retractors were placed around the femur. The canal was opened with a box cutting osteotome, followed by a T handled reamer and a lateralizing reamer. The chili pepper broach was then used, followed by sequential broaching until there was good stability of the broach in the femur. Retractors were placed to expose the acetabulum. The labrum and central soft tissues were removed. Reaming was performed initially going up in 2 mm increments, then 1 mm increments until good bite was obtained with an odd sized reamer. The cup 1 mm larger than the last reamer was then inserted using the appropriate anteversion guides. The cup was further stabilized with a single screw. A trial neutral liner was placed. The broach was placed in the canal. A trial head and neck were then placed and the hip relocated and checked for leg length and stability. An intraoperative film confirmed the component position and no evidence of fracture. The patient was stable in the position of sleep, of squatting, and could be put through a range of motion with 45 degrees internal rotation without dislocation. At 90 degrees flexion, internal rotation to 70-80 degrees was possible before dislocation. This was felt to be satisfactory and the appropriate components were opened, and the trials were removed. I checked the film carefully and debated between in anthology a and a standard anthology. There was better stability with a 7 standard anthology and it was fairly easy to impact that. The acetabular liner was impacted into position. The final stem was then impacted into the prepared femoral canal. A brief Betadine soak was performed while trialing with head options. The hip was meticulously irrigated with normal saline. Finally the femoral head was impacted onto the stem. The acetabulum was cleared of all material and the hip relocated one final time. The capsulomuscular flap was then repaired to the greater trochanter though an awl hole using the tag sutures. The short external rotators were repaired with a nonabsorbable suture. A deep drain was placed and brought out anteriorly. The fascia shayy was closed with Vicryl. The subcutaneous layer was closed with barbed sutures and SteriStrips. An Aquacel Ag dressing was applied and the patient was taken to recovery having tolerated the procedure well. Complications: none Post-operative Condition: stable Disposition: Acute Care Plan for aftercare: The patient will be maintained on a standard total hip replacement protocol with weight bearing as tolerated and posterior hip precautions. The patient will receive Aspirin and sequential compression devices for DVT prophylaxis. The patient will be discharged home when safe for the home environment.
--- NOTE | 2022-05-22 10:44 | PM.PREOP ---
Pre-operative Note COVID-19 COVID-19 status: Negative Interval Note History & Physical reviewed/Exam performed by Physician: Yes Changes to H&P: No
--- NOTE | 2022-05-22 10:52 | SUR.PREOP ---
[facility] Negative. Verified as admitting RN, confirmed negative test on pt's phone [facility] account.
[2022-05-22] MEDS: CEFAZOLIN 2 GM/100 ML PREMIX 100 ML IV ×2 (10:59→18:42)
[2022-05-22] MEDS: TRANEXAMIC ACID 1,000 MG VIAL 1000 MG INJ (11:15)
--- NOTE | 2022-05-22 11:34 | SUR.OPER ---
Lateral on padded OR bed. Gel axillary roll. Arms secured on padded armboard with pillow supporting top arm. Padded hip positioner braces x4 - anterior and posterior chest and pelvis. Additional gel pad used anterior pelvis. Gel pad under bottom leg from knee to foot and secured with tape over sheet.
[2022-05-22] MEDS: BUPIVACAINE LIPOSOME 266 MG/20 ML VIAL INJ (11:40)
[2022-05-22] MEDS: BUPIVACAINE 0.25% (PF) 60 ML, EPINEPHrine 0.3 MG INJ (11:40)
--- NOTE | 2022-05-22 12:47 | DI.RAD.S_ITS ---
PROCEDURE: XR PELVIS 1-2V INDICATIONS: INNER OP LEFT HIP TECHNIQUE: Intra-operative view of the pelvis and hip acquired. COMPARISON: None. FINDINGS: Imaging utilized during performance of total left hip arthroplasty. IMPRESSION: Image obtained during performance of total left hip arthroplasty. No evidence of acute complications. Dictated by: Filiberto Jacobs M.D. on 05/22/2022 at 13:33 Approved by: Filiberto Jacobs M.D. on 05/22/2022 at 13:33
--- NOTE | 2022-05-22 13:55 | SUR.PHASEI ---
Report called to
--- NOTE | 2022-05-22 14:21 | SUR.PHASEI ---
Patient transferred to room 223, report given to Bridgett. VS stable. Dressing CDI. HV patent. Sensation intact to L1. IV saline locked. Belongings bag and red personal bag with patient.
[2022-05-22] MEDS: LACTATED RINGERS 1,000 ML 125 ML IV ×2 (15:00→23:29)
[2022-05-22] MEDS: IBUPROFEN 400 MG TABLET PO (17:20)
[2022-05-22] MEDS: LOSARTAN 25 MG TABLET PO (17:25)
[2022-05-22] MEDS: OXYCODONE IR 10 MG TABLET PO ×2 (17:26→20:41)
[2022-05-22] MEDS: polyethylene glycoL 3350 17 GM POWD.PACK PO (17:27)
[2022-05-22] MEDS: hydrOXYzine pamoate 25 MG CAPSULE PO (18:41)
[2022-05-22] MEDS: ACETAMINOPHEN 325 MG TABLET 650 MG PO ×2 (18:42→23:23)
[2022-05-22] MEDS: HYDROMORPHONE 2 MG TABLET PO (19:25)
--- NOTE | 2022-05-22 19:43 | PC.NURSE ---
Pt arrived from PACU at 410 A&Ox3, pleasant initially denies pain to L hip. aquacel c/d/i, hemovac in place. He reports numbness from waist down and initially has minimal movement to feet. Shortly after dinner he reports pain increasing throbbing to 6/10 in his L hip, scheduled and prn medications given 10 mg oxycodone with minimal effect. He regains full sensation to BLE's and able to move BLE's, wiggle toes +CMS and is able to void using the urinal.He is given prn 2 mg dilauded at shift change. Continuous monitoring. LR running at 125ml/hr.
[2022-05-22] MEDS: ASPIRIN EC 81 MG TABLET PO (20:38)
[2022-05-22] MEDS: DOCUSATE 100 MG CAPSULE PO (20:38)
[2022-05-22] MEDS: METOPROLOL ER 50 MG TABLET 25 MG PO (20:38)
[2022-05-22] MEDS: buPROPion 75 MG TABLET PO (20:38)
[2022-05-22] MEDS: KETOROLAC 30 MG/ML VIAL 15 MG IV (21:11)
--- NOTE | 2022-05-22 22:32 | PC.NURSE ---
Addendum entered by Annalisa Quinn R.N. 05/23/22 05:56: Patient medicated at 0016 with oxycodone (had Dilaudid 4mg at 2332). When patient checks done patient lying quietly and no moaning. Dozed at intervals and was even snoring. This morning states pain is 9/10 and was medicated with Dilaudid 4mg and now with oxycodone, vistaril and scheduled Tylenol. Ice packs have been applied and patient has been repositioned. Original Note: Patient is alert and oriented. Breath sounds CTA with RA sat of 94%. HRR w/BP of 156/95 and was given evening dose of Metoprolol. Denies nausea. BT present but has not yet passed flatus. Is voiding per urinal and denies dysuria. Able to move self in bed but assisted to reposition on side at his request. Gait not assessed at present time. Aquacel dressing to left hip is CDI; hemovac is intact and compressed. Having pain control issues and was medicated with Dilaudid at shift change and then oxycodone at 2040. Dr. Otero called inquiring about patient and was informed he states neither of the pain medications are working so she ordered a 1x dose of Toradol which he had and states that did not work either. Have been putting ice packs to groin area and along lateral hip and will provide additional pain medication as soon as he is able to have more. Is wearing bilateral calf SCD's. States numbness has resolved. Fall risk score is high and bed alarm is activated.
[2022-05-22] MEDS: HYDROMORPHONE 4 MG TABLET PO (23:23)
[2022-05-23] MEDS: OXYCODONE IR 10 MG TABLET PO ×4 (00:16→12:18)
[2022-05-23] MEDS: hydrOXYzine pamoate 25 MG CAPSULE PO ×2 (00:16→05:52)
[2022-05-23] MEDS: CEFAZOLIN 2 GM/100 ML PREMIX 100 ML IV (02:54)
[2022-05-23 04:52] LABS: Hematocrit 38.4 % (41-53); Hemoglobin 13.5 g/dL (13.5-17.5)
[2022-05-23] MEDS: HYDROMORPHONE 4 MG TABLET PO (04:53)
[2022-05-23 05:17] VITALS: BP 128/65; PULSE 76; RESP 18; TEMP 36.5; O2SAT 94
[2022-05-23] MEDS: ACETAMINOPHEN 325 MG TABLET 650 MG PO ×2 (05:52→11:36)
--- NOTE | 2022-05-23 07:47 | PM.DS.1 ---
History of Present Illness History of Present Illness Date Patient Seen: 05/23/22 Time Patient Seen: 07:47 Chief complaint: Left hip pain Narrative: Left hip pain has been moderate to severe. Pain better controlled this am. Denies fever or chills. No nausea or vomiting. Patient does have assistance at home. Discharge Providers Provider Discharge Date: 05/23/22 Primary care physician: Linda Leroy MD Consults: 05/22/22 09:17 Consult to Anesthesiology Routine Comment: Consulting Provider: Anesthesiologist Reason for consultation: Regional block for post operative pain control 05/22/22 14:59 Consult to Discharge Planning Routine Comment: Consult to Physical Therapy Evaluate & Treat Comment: Physician Instructions: post op CARLOS protocol Consult to Respiratory Therapy Evaluate & Treat Comment: Physician Instructions: Evaluate and treat Discharge provider: Fortunato Be PA-C Summary Hospital Course Discharge Diagnosis: Left hip osteoarthritis Hospital Course: Left total hip arthroplasty posterior approach Same procedure as scheduled: Yes Indications: The patient has had progressively worsening left hip pain with radiographic changes consistent with arthritis. Non-operative management has failed and the patient has requested total hip replacement. The risks, benefits and alternatives to surgery were discussed with the patient prior to proceeding. Risks discussed included, but were not limited to, failure to relieve pain, leg length discrepancy, dislocation, stiffness, infection, nerve damage, deep venous thrombosis, pulmonary embolism, stroke, coma, heart attack, permanent paralysis and , as well as the potential need for eventual revision of the prosthetic. Surgeon: Yanira Otero Solar Thermal Installer: Joslyn Radford Anesthesia Type: General and Spinal Operative Notes Findings: Severe left hip OA, adequate bone, adequate stability Closure Type: primary Specimen(s): none sent Prosthetic devices, grafts, tissues, transplants, or devices: Otero [employer] Nephew R3 54 mm cup, size 3 standard offset anthology a, neutral poly liner, one screw 6.5, -3 oxinium Applied: drain(s) Estimated Blood Loss (mL): 250 Blood products transfused: none Patient admitted for left total hip arthroplasty, posterior approach. Patient consented to the same. Patient underwent left total hip arthroplasty, posterior approach May 22, 2022. Patient had marginal pain control last night which is improved this morning. He was able to get some rest this morning. Patient be maintained on a standard total hip replacement protocol with weight-bearing as tolerated and posterior hip precautions. Patient will mobilize with physical therapy. Likely discharge home today after physical therapy if safe for home environment. Exam Vital Signs (past 8 hours): - 05/23/22 05:17 Temperature 97.7 F Pulse Rate 76 Respiratory Rate 18 Blood Pressure 128/65 Pulse Oximetry 94 Oxygen Flow Rate 0 Oxygen Delivery Method Room Air Oxygen Flow Rate 0 Narrative Exam Narrative: 61-year-old male resting comfortably in bedside chair. Dressing is Clean, dry, intact.. Motor functions intact bilateral lower extremities. Sensation grossly intact to light touch bilateral lower extremities. Const General: cooperative and comfortable Objective Labs Result Diagrams: 05/23/22 04:35 Labs: Laboratory Results - last 24 hr 05/23/22 04:35 Hgb 13.5 Hct 38.4 L PFSH Medical History Arthritis CAD (coronary artery disease) Excessive daytime sleepiness HLD (hyperlipidemia) Hypertension Impaired fasting glucose Lumbar pain with radiation down both legs Non-STEMI (non-ST elevated myocardial infarction) (11/2013) Obstructive sleep apnea of adult Primary insomnia Sciatica Tobacco dependence due to cigarettes Surgical History History of lumbar spinal fusion (11/15/21) S/P CABG (coronary artery bypass graft) (2013) Social History marital status: number of children: 1 household members: none lives independently: Yes caregiver/support person: No occupational status: employed 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 Discharge Plan Discharge Plan Patient Disposition: Home Discharge orders & Medications Discharge Orders: Discharge (Order); Ordered 05/23/22 Ordered By: Fortunato Be Prescriptions: New hydromorphone 2 mg Tablet 2 mg PO Q3H PRN (Reason: Pain, Severe (7-10)) Qty: 30 0RF Rx Instructions: One tablet every 3 hours as needed for breakthrough pain oxycodone 10 mg Tablet 10 mg PO Q3HR PRN (Reason: Pain, Severe (7-10)) Qty: 30 0RF Continued losartan 50 mg Tablet 50 mg PO QAM metoprolol succinate 50 mg Tablet Extended Release 24 Hr 25 mg PO BID bupropion HCl 75 mg Tablet 75 mg PO BID docusate sodium 100 mg Capsule 100 mg PO BID Qty: 20 0RF hydroxyzine pamoate 25 mg Capsule 25 mg PO Q4HR PRN (Reason: Nausea And Vomiting) Qty: 30 0RF oxycodone 5 mg tablet 5 mg PO Q3H PRN (Reason: pain) Qty: 60 0RF Rx Instructions: 1-2 tabs PO every 3 hours prn pain aspirin 81 mg Capsule 81 mg PO BID pravastatin 80 mg tablet 80 mg PO DAILY losartan 25 mg tablet 25 mg PO QPM (DME) Respironics Dreamstation CPAP Qty: 1 Dose Instruction: As directed Label Comments: Pressure: 5-10 cmH2O DME: [place] Rx Instructions: As directed Discontinued acetaminophen 325 mg Tablet 650 mg PO Q6HR PRN (Reason: Pain, Mild (1-3)) Qty: 60 0RF Follow up/Referrals: Linda Leroy MD [Primary Care Provider] - Yanira Otero MD [Physician] - As previously scheduled (Follow up w/ Dr Otero on 06/06/2022 @ 11:00 am at [email or web address].) Diet/Activity/Treatments Diet: Diet as Tolerated Activity: WBAT to left leg. Posterior hip precautions. Cold/Heat Therapy: Ice to hip as needed for pain. Skin/Wound/Dressing Care Report to your healthcare provider any signs of infection, such as:: chills, fever, night sweats, unusual drainage and unusual redness Visit Report/Discharge Packet Instructions: DI for Hip Replacement Stand Alone Forms: Surgery Discharge Discharge Data Primary Care Provider: Linda Leroy Attending Provider: Yanira Otero
[2022-05-23 09:06] VITALS: BP 115/68; PULSE 77
[2022-05-23] MEDS: METOPROLOL ER 50 MG TABLET 25 MG PO (09:06)
[2022-05-23 09:08] VITALS: BP 115/68; PULSE 77
[2022-05-23] MEDS: LOSARTAN 50 MG TABLET PO (09:08)
[2022-05-23] MEDS: ASPIRIN EC 81 MG TABLET PO (09:08)
[2022-05-23] MEDS: buPROPion 75 MG TABLET PO (09:08)
[2022-05-23] MEDS: PRAVASTATIN 20 MG TABLET 80 MG PO (09:08)
[2022-05-23 09:09] VITALS: BP 115/68; PULSE 77; RESP 16; TEMP 36.3; O2SAT 93
[2022-05-23] MEDS: DOCUSATE 100 MG CAPSULE PO (09:09)
--- NOTE | 2022-05-23 09:45 | PT.IIE ---
Current Diagnoses Unilateral primary osteoarthritis, left hip (05/22/22) Surgery Performed Operation Date: 05/22/22 11:15 Actual Procedures p Total Hip Arthroplasty(Left) - Yanira Otero MD Surgical History (Last Reviewed 05/23/22 @ 07:51 by Fortunato Be PA-C) History of lumbar spinal fusion (11/15/21) S/P CABG (coronary artery bypass graft) (2013) Medical History (Last Reviewed 05/23/22 @ 07:51 by Fortunato Be PA-C) Arthritis CAD (coronary artery disease) Excessive daytime sleepiness HLD (hyperlipidemia) Hypertension Impaired fasting glucose Lumbar pain with radiation down both legs Non-STEMI (non-ST elevated myocardial infarction) (11/2013) Obstructive sleep apnea of adult Primary insomnia Sciatica Tobacco dependence due to cigarettes Physical Therapy Inpatient Evaluation/Re-Eval M1 PT/OT-IP Prior Functional Status Start: 05/23/22 13:56 Freq: NEEDED Status: Active Protocol: Document 05/23/22 09:45 AB (Rec: 05/23/22 14:34 AB [id number]) Medical Review Prior Functional Status Medical History Reviewed Yes Communication able to make needs known Mobility and Gait pt stated that he is modified independent with all mobility Social History Household Members none Living Arrangements House Number of Floors (Floors) One Floor Number of Stairs To Enter/Railing? no steps to enter Home Environment Tub/Shower,Tub/Shower Doors Home Equipment Front Wheel Walker,Raised Toilet Seat Without Armrests, Hand Held Shower,Grab Bars Near Toilet,Grab Bars In Shower Additional Social History Comment pt stated that his sister will be staying with him for ~ 1 week and afterwards, his son will assist him and can stay with him as well if needed M2 PT-IP Current Condition Start: 05/23/22 13:56 Freq: NEEDED Status: Active Protocol: Document 05/23/22 09:45 AB (Rec: 05/23/22 14:34 AB [email or web address]) Physical Therapy Current Condition Current Condition Evaluation Date 05/23/22 Treatment Diagnosis s/p L CARLOS posterior approach; difficulty in walking Onset Date 05/22/22 M3 PT-IP Subjective Start: 05/23/22 13:56 Freq: NEEDED Status: Active Protocol: Document 05/23/22 09:45 AB (Rec: 05/23/22 14:34 [id number]) Subjective Physical Therapy Visit Type Type Initial Evaluation Visit Start Time 09:45 Visit Stop Time 12:06 Total Visit Minutes 58 Notes pt seen for split visits: 945 am to 1025 and 1148 to 1206 Number of HEALTH TECHNICIAN HEARING Visits 0 Physical Therapy Visit Comments Patient Comments agreed to do PT Patient Goals to go home Therapy Pain Assessment Pain When Pain Assessed At Rest Pain Present Pain Present Pain Reported Location Left Hip Intensity 8 Scale Used Numeric (0 - 10) Pain Management Techniques Apply Cold,Modification of Treatment,Re-positioning, Timing of Activity with Medications M4 PT-IP Mobility and Gait Start: 05/23/22 13:56 Freq: NEEDED Status: Active Protocol: Document 05/23/22 09:45 AB (Rec: 05/23/22 14:34 [id number]) PT-Bed Mobility Assessment Supine to Sit Supine to Sit Standby Assistance Sit to Supine Sit to Supine Standby Assistance PT-Transfer Assessment Sit to and From Stand Sit to and from Stand Contact Guard Assistance,1 Person Assistance,Use of Upper Extremities Equipment Transfer Assistive Device Gait Belt,Front Wheeled Walker Orthotic/Prosthetic Devices or Brace: No Transfers Transfer Destination Chair Transfer Technique Stand Step Pivot Transfer Ability Level of Assist Standby Assistance,Contact Guard Assistance,1 Person Assistance,Use of Upper Extremities Comments Mobility Comments pt sitting on EOB. agreed to do PT. pt wanted to sit on the chiar and completed sit to stand CGA and step transfer to chair using FWW CGA. educated on posterior hip precautions but needs cues to reacall. completed sit to stand from chair CGA and ambulated towards the bed using FWW SBA to CGA. cued for stability and posture. completed bed mobility sit<> suupine SBA. completed sit to stand from EOB CGA and cues for hip precautions. ambulated in room ~ 30 ft using FWW SBA to CGA. agreed to sit on the chair. completed sit<>stand SBA to CGA and completed x 5 reps with initial cues needed but able to complete without cues after 3rd rep. step transfer to EOB SBA. completed sit <> stand from EOB X 3 reps and completed SBA to CGA with occasional cues. pt sat back on chair. positioned. call ight and table placed within reach. informed pt regarding safety and need for caregiver training. [place] will be coming at ~ 1130 today. informed nurse to let PT know when sister arrives. Sister in room for caregiver training. educated regarding hip precautions. pt's sister was able to put safety belt on and assisted pt with transfers and ambulation using FWW. assisted pt with bed mobility. pt transferred back to chair using FWW SBA. pt and sister without further concerns. Gait Assessment Gait Gait Assistance Required: Standby Assistance,Contact Guard Assist Distance (Feet) 30 Able to Maintain Weight Bearing Status Yes During Gait Assistive Devices Assistive Device Gait Belt,Front Wheeled Walker Orthotic/Prosthetic Devices or Brace: No Gait Deviations General Gait Pattern Antalgic,Decreased Stride Length,Decreased Feet Clearance,Flexed Trunk,Step-to Gait Factors Limiting Gait Function Factors Limiting Gait Function Decreased Activity Tolerance, Decreased Strength,Difficulty Following Directions,Limited Range of Motion,Pain,Poor Balance,Poor Safety Awareness PT-Balance Assessment Sitting Balance and Reactions Static Sitting Balance Ability Normal Dynamic Sitting Balance Ability Good Standing Balance and Reactions Static Standing Balance Ability Fair Dynamic Standing Balance Ability Fair Device Used FWW M5 PT-IP Objective Assessments Start: 05/23/22 13:56 Freq: NEEDED Status: Active Protocol: Document 05/23/22 09:45 AB (Rec: 05/23/22 14:34 AB [email or web address]) Orientation Orientation/Cognition Level of Alertness Alert Orientation Name,Place,Situation Language Function Ability No Deficits Noted Safety Awareness Decreased Safety Awareness Memory Description Short Term Impaired Gross Range of Motion Lower Extremity ROM Assessment Within Functional Limits Strength Lower Extremity Strength Assessment Left Impaired Hip 3+/5 Knee 4-/5 Coordination Assessment Gross Coordination Gross Coordination WNL Sensation Assessment Sensation Gross Sensation WNL Muscle Tone Muscle Tone WNL Yes M6 PT-IP Treatment Start: 05/23/22 13:56 Freq: NEEDED Status: Active Protocol: Document 05/23/22 09:45 AB (Rec: 05/23/22 14:34 AB [email or web address]) Physical Therapy Treatment Education Education Provided Precautions,Weight Bearing Status,Post-Op Packet,Safety M7 PT-IP Assessment and Plan Start: 05/23/22 13:56 Freq: NEEDED Status: Active Protocol: Document 05/23/22 09:45 AB (Rec: 05/23/22 14:34 AB [id number]) PT Summary Assessment and Plan Potential Rehabilitation Potential Fair Status of Condition at Evaluation Evolving Summary Impairments Pain,ROM,Strength,Balance, Coordination,Sensation,Tone, Cognition,Bed Mobility, Transfers,Gait,Activity Tolerance Assessment Summary caregiver training conducted and pt's sister is able to safely assist pt. pt plans to go home today and may go home when medically stable. Goals Bed Mobility Goal Independent Transfer Goal Independent,Front Wheeled Walker Gait Goal Independent,Front Wheel Walker Gait Distance 250 Days to Meet Goals 5 Frequency of Treatment Frequency Of Treatment Twice a Day Treatment Plan Physical Therapy Treatment Plan Bed Mobility Training,Transfer Training,Gait Training, Therapeutic Exercise,Balance Retraining,Post Op Education, Discharge Planning,Hot or Cold Pack,Neuromuscular Re-ed, Coordination Retraining,Manual Therapy Precautions Posterior Hip Precautions No Hip Flexion > 90 degrees,No Hip Internal Rotation,No Hip Adduction Weight Bearing Status Weight Bearing Status Weight Bear as Tolerated Allowed Weight Bearing Amount (enter % LLE WBAT or #) (%) Recommendations To Nursing Amount of Assist Needed 1 Person Assist Discharge Recommendations PT Discharge Recommendations Home with Assistance, Outpatient PT Transportation Needs at Discharge Private Vehicle
[2022-05-23 10:18] VITALS: BP 127/62; PULSE 67
[2022-05-23] MEDS: IBUPROFEN 400 MG TABLET PO (11:36)
--- NOTE | 2022-05-23 13:21 | CM.DANOTE ---
DCP Assessment: Payor: Lucia PCP: MD Rad Pt is a 61 y.o. M who presented to the hospital for planned hip surgery. Pt tolerated surgery without complications. Pt admitted to the floor for further management and evaluation of surgical intervention. DCP unable to meet with pt today as pt was already discharged by the time DCP could assess. RN states that the caregiver was in there and took him home today following PT. Shanika Zuniga RN/DCP Discharge Planning/Care Management Pre-Anesthesia Assessment Start: 05/15/22 08:19 Freq: Status: Complete Protocol: Document 05/15/22 08:19 [facility] (Rec: 05/15/22 12:11 CAB [id number]) Pre-Anesthesia Assessment PAC Comment Pt is s/p TLIF 11/15/21. He decllined need for scheduled PAC phone assessment. He reports no changes to medical/ medication history, has no questions with upcoming surgery, chart review only. Primary Care Provider Linda Leroy Seen Specialist in Last 12 Months Yes Specialist Seen Orthopedist,Sleep specialist Primary Language Central African Preferred Language Central African Photographic Processor Required No Height 162.56 cm Weight 90.718 kg Body Mass Index (BMI) 34.3 Hearing Ability Normal Visual Assist None Dentition Type Full- Upper & Lower Barriers to Learning None Hx Anesthesia Reactions No: DAVID-CPAP was recalled, unsure of present treatment Hx Family Anesthesia Reaction No Hx Malignant Hyperthermia No Hx Blood Transfusions No Anesthesia Review Requested No alcohol intake current alcohol intake frequency 0-2 drinks per day Smoking Status Current every day smoker Tobacco type cigarettes Smoking cigarettes per day 5 Substance Use Type does not use Pain Present Pain Reported Musculoskeletal Symptoms Abnormal Gait,Back Pain, Difficulty Walking,Numbness, Radiating Pain into Limb, Tingling History of Falling (Recent or History of No ) Patient is completely paralyzed or No completely immobile Mental Status Oriented to own ability Is patient on oxygen? No Does patient have HAMEED/SOB No Hx Sleep Apnea Yes CPAP/BIPAP use prescribed and used routinely Currently Taking a Beta Obi Yes: Metoprolol Hx Chest Pain Yes: Denies anything current Hx SOB Yes: Denies anything current Hx Syncope or Dizziness Yes: Denies anything current Anti-Coagulant Therapy Yes: ASA 162mg daily-unknown what instructions given to patient Has a Forest Management Teacher Yes: Dr. Moreira - last visit Cardiac Testing No Hx Pacemaker/ICD No Pacemaker Rep Required? No Comment Cardiac records scanned Diet Type At Home Regular dysphagia No Urinary Catheter Present No Hx Urinary Self Catheterization No Diabetes No: Impaired fasting glucose Hx Drug Resistant Organism No Presence of External or Internal Medical Yes: HX of CABG, lumbar Devices hardware Received a COVID vaccine? Yes: moderna Received all doses? Yes Marital Status Single Lives With none Prior Living Arrangements House Number of Floors (Floors) One Floor Support System Sibling(s) Patient Discharge Plan Description Return Home Comment Lives on [facility] Feels Safe in Current Environment Yes Been Physically Hurt or Threatened By a No Person in Current Environment Do you have thoughts of harming yourself None or others? Are you currently considering suicide? No Do you have a plan to hurt yourself or No Plan others? Do You Have Any Spiritual Beliefs That No May Affect Your HC Choices? Do You Have Any Cultural Practices That No May Affect Your HC Choices? Comment Sil Who Can We Speak to About Patient's Care Family, friends Identifying Code for Release of Patient Declines to issue Information Health Care Proxy/Next of Kin Hellen (mother) Health Care Proxy Emergency Contact Name Christine Platt (sister) Emergency Contact Advance Directives? No Advance Directives on File No Power of Director Of Direct Marketing Yes Power of Director Of Direct Marketing Name Christine (sister) Power of Director Of Direct Marketing Stop Bang Assessment Do you snore loudly (louder than talking Yes or loud enough to be heard through closed doors) Do you often feel tired, fatigued or Yes sleepy during the daytime Has anyone ever observed you stop No breathing while sleeping? Do you have, or are you being treated No for, high blood pressure Is your BMI more than 35 kg/m2 Yes Age over 50 Yes Estimated neck circumference greater No than 40cm or 16in Gender male Yes Result Positive
== END 2022-05-23 12:27 | disposition home or self-care (01) ==
LOC: OR 09:15 → AC 09:17
PROVIDERS: PCP Family Medicine; Referring Provider Orthopaedic Surgery; Visit Provider Orthopaedic Surgery
PROC: 0SRB0JZ Replacement of Left Hip Joint with Synthetic Substitute, Open Approach (ICD-10-PCS; CPT 27130; principal; 2022-05-22 11:15)
DX: M16.12 Unilateral primary osteoarthritis, left hip (principal); I10 Essential (primary) hypertension; I25.10 Atherosclerotic heart disease of native coronary artery without angina pectoris; G47.33 Obstructive sleep apnea (adult) (pediatric); F17.210 Nicotine dependence, cigarettes, uncomplicated
CPT/HCPCS: 27130; 36415; 72170; 73502; 85014; 85018; 97162; 97530; C1776; C9290; J0171; J0690; J1885; J2250; J2704; J3010

== ENCOUNTER → 2022-12-10 16:13 | Outpatient (CLI) | payer OTHER, SELFPAY ==
[2022-05-22 15:52] VITALS: BMI 34.3
[2022-12-10 16:45] LABS: Add Manual Diff / Slide Review NO; Basophils Absolute Auto 100 /uL (0-100); Basophils Percent Auto 1.2 % (0-2); Eosinophils Absolute Auto 200 /uL (0-450); Eosinophils Percent Auto 2.6 % (2-4); Hematocrit 47.8 % (41-53); Hemoglobin 15.9 g/dL (13.5-17.5); Lymphocytes Absolute Auto 2600 /uL (1100-4500); Lymphocytes Percent Auto 30.2 % (25-40); Mean Corpuscular HGB Conc 33.3 % (30-36); Mean Corpuscular Hemoglobin 32.2 PG (26-34); Mean Corpuscular Volume 96.7 fL (80-100); Monocytes Absolute Auto 900 /uL (0-900); Monocytes Percent Auto 10.8 % (3-14); Neutrophils Absolute Auto 4700 /uL (1500-7000); Neutrophils Percent Auto 55.2 % (50-75); Platelet Count 224 X10^3/uL (150-400); Red Blood Cell Count 4.94 X10^6/uL (4.5-5.9); Red Cell Distribution Width 14.6 % (11.6-14.8); White Blood Cell Count 8.6 X10^3/uL (4.5-11.0)
[2022-12-10 16:54] LABS: Erythrocyte Sedimentation Rate 1 MM/HR (0-15)
[2022-12-10 17:20] LABS: C-Reactive Protein Quant 0.6 mg/dL (<1.0)
== END ==
PROVIDERS: PCP Family Medicine; Referring Provider Physician Assistant Medical; Visit Provider Physician Assistant Medical
DX: M16.12 Unilateral primary osteoarthritis, left hip (principal)
CPT/HCPCS: 36415; 85025; 85651; 86140

== ENCOUNTER 2024-08-26 11:48 | Day surgery (SDC) | payer MEDICARE, SELFPAY ==
[2022-05-22 15:52] VITALS: BMI 34.3
[2024-08-21 08:31] VITALS: BMI 31.4
[2024-08-26] VITALS (14 sets, daily range): BP systolic 113–145; BP diastolic 51–101; PULSE 71–79; RESP 8–18; TEMP 35.4–37.1; O2SAT 90–96; BMI 32.3
--- NOTE | 2024-08-26 | DI.RAD.S_ITS ---
PROCEDURE: XR LUMBAR SPINE 2-3V INDICATIONS: L4-5 L5-S1 TLIF TECHNIQUE: 3 views of the lumbar spine were acquired. COMPARISON: [facility], [facility], XR LUMBAR SPINE 2-3V, 11/15/2021, 18:26. Findings and impression: Intraoperative fluoroscopic guidance was obtained for L4-S1 posterior fusion and interbody disc spacer placement/revision. Please see operative note full details. Dictated by: Jason Drake M.D. on 08/28/2024 at 10:17 Approved by: Jason Drake M.D. on 08/28/2024 at 10:18
[2024-08-26] MEDS: LACTATED RINGERS 1,000 ML 42 ML IV ×2 (12:47→16:20)
--- NOTE | 2024-08-26 13:26 | PM.PREOP ---
Pre-operative Note Interval Note History & Physical reviewed/Exam performed by Physician: Yes Changes to H&P: No
[2024-08-26] MEDS: CEFAZOLIN 2 GM/100 ML PREMIX 100 ML IV ×2 (14:41→21:55)
[2024-08-26] MEDS: BUPIVACAINE 0.25% (PF) 60 ML, EPINEPHrine 0.15 MG INJ (15:12)
[2024-08-26] MEDS: BUPIVACAINE LIPOSOME 266 MG/20 ML VIAL INJ (15:13)
--- NOTE | 2024-08-26 17:35 | P.OP_ITS ---
Operative Date/Time/Diagnoses Date of procedure: 08/26/24 Time of procedure: 15:00 Pre-op diagnosis: 1. L5-S1 anterolisthesis 2. L5-S1 foraminal stenosis 3. History of L4-5 fusion with instrumentation. Post-op diagnosis: same Procedure & Clinicians Procedure: 1. L5-S1 posterolateral and posterior interbody fusion 2. L5-S1 posterior interbody cage placement 3. L4-5 posterior non-segmental instrumentation removal 4. L4-5 revision laminectomy with exploration of fusion 5. L4-5, L5-S1 posterior segmental instrumentation with pedicle screw placement 6. L4-5 posterolatearl fusion 7. Coalgood of bone marrow from iliac crest through a separate incision 8. Utilization of microsurgical technique and operating microscope Same procedure as scheduled: Yes Indications: Patient has been having chronic back pain and worsening lumbar radiculopathy. Patient was found to have L5-S1 anterolisthesis with history of L4-5 fusion with instrumentation. Patient has bilateral foraminal stenosis with correlating symptoms. Patient failed multiple conservative management with worsening pain weakness and numbness in her lower extremity. Patient has been having difficulty performing activity of daily living. After discussing risks benefits of treatment options, patient elected proceed with surgery. Surgeon: Joy Saez Water Treatment Specialist: Jaz Dykes Click Yes if Unassisted: No Anesthesia Type: General Operative Notes Closure Type: primary Specimen(s): none sent Prosthetic devices, grafts, tissues, transplants, or devices: Globus revolve screws, Rise cage Estimated Blood Loss (mL): 50 Blood products transfused: none Procedure in detail: Patient was seen in the preoperative area. Risks and benefits of the surgery was discussed with the patient. Informed consent was obtained from the patient and placed in the chart. Surgical site was marked. Patient was taken to the operative room. General anesthesia was administered. Prophylactic antibiotic was given to the patient less than 30 min before the incision was made. Patient was placed into a prone position on the Steven table. Patient's back was then prepped and draped in the sterile fashion. Time-out was performed at this time. Using patient's previous scar incision was made over the L4-5 L5-S1 interval on the left side. Fascia was incised in line with skin incision. Patient's previously placed hardware over the L4-5 level was identified by dissecting down to the level the hardware using a Bovie and a Pennington. The locking caps which was removed using globus screwdriver. The locking bob was then removed from the tulips of the pedicle screws using a Shad. The pedicle screws were then removed using the screwdriver. The screws were found to have good purchase. The Globus and MARS retractors was then placed into the wound and docked onto the L5 lamina using C-arm guidance. Using microsurgical technique and operating microscope a laminectomy facetectomy was performed by removing the L5 lamina and the L5-S1 facet. The disc space at L5-S1 level was identified next. And a total diskectomy was performed at L5-S1 level. The endplates were decorticated using a rasp and shaver. The total diskectomy and decortication was performed at L5-S1 level in order to to accomplish a L5-S1 fusion. The local bone from the laminectomy and facetectomy was saved for local bone grafting. After the total diskectomy and decortication was completed, Viacel bone graft material was combined with local bone that was harvested earlier. At this time, a separate skin is incision was made over the iliac crest. A Jamshidi needle was inserted into the iliac crest through a separate skin incision. 5 cc of bone marrow aspiration was obtained through the separate skin incision using a Jamshidi needle from the iliac crest. The bone marrow aspiration was combined with local bone and the Trifecta bone grafting material. The bone grafting material was placed into the L5-S1 interbody space along with a expandable cage. The cage was expanded to its maximum height using the torque limiting screwdriver. At this time a mirror image incision was made on the right side. The fascia was incised in line with the skin incision. Patient's previously placed hardware on the left side was then removed in the same fashion as it was on the right side. The hardware was also found to have good purchase. The fusion mass on the left side was exposed by performing a right-sided hemilaminectomy at L4-5 level. The hemilaminectomy was performed using the Kerrison rongeur to undercut the lamina at L4-5 as well removing additional epidural scar tissue for purpose of decompressing the epidural space. The fusion mass was explored and was found have visible motion indicating pseudoarthrosis. Globus MARS retractor was inserted and docked onto the L4-5 L5-S1 posterolateral gutter. Using the power drill, posterior-lateral decortication was performed at L4-5 L5-S1 level until bleeding cortical bone was identified. The remaining bone grafting material was placed into the L4-5 L5-S1 posterior lateral gutter he order to accomplish posterolateral fusion at the L4-5 L5-S1 level. Using the double C-arm technique, pedicle screws were placed into the L4-L5 and S1 pedicles bilaterally. This was done by placing the Jamshidi needle into the pedicles, then placing the guidewires over the Jamshidi needle, and finally placing the cannulated screws over the guidewires bilaterally. After the pedicle screws were placed, 2 titanium rods was locked into the heads of the pedicle screws using locking caps and torque limiting screwdriver. Neuro monitoring was utilized throughout the entire case. Patient's signals were stable throughout the procedure. Patient's pedicle screws were tested using the neuro monitoring probe and they were all tested to be above 20 milliamps of threshold. Bilateral S1 screws were tested above 30 milliamps of threshold. After all the hardware was placed, and confirmed with AP and lateral C-arm imaging, the wound was then irrigated with sterile normal saline and packed with Ray-Jessi gauze for 3 min to accomplish hemostasis. After the gauze was removed the deep fascia was closed with #1 Vicryl suture. The subcutaneous layer was closed with 2-0 Vicryl. The skin was closed with skin neto. Patient tolerated the procedure well. There were no complications. The Operation could not have been safely performed without compromising the technical result or length of the procedure, without the assistance of a skilled nursing surgical services director. The nursing surgical services director was medically necessary for proper positioning, retraction and manipulation of instruments, proper exposure, surgical preparation, and manipulation of tissue. Complications: none Post-operative Condition: stable Disposition: PACU Plan for aftercare: Admit to inpatient hospital
[2024-08-26] MEDS: hydrOXYzine HCL 25 MG TABLET PO (18:26)
[2024-08-26] MEDS: ACETAMINOPHEN 325 MG TABLET 650 MG PO (18:53)
[2024-08-26] MEDS: OXYCODONE IR 10 MG TABLET PO (18:54)
[2024-08-26] MEDS: LACTATED RINGERS 1,000 ML 125 ML IV (18:55)
[2024-08-26] MEDS: LOSARTAN 25 MG TABLET PO (19:01)
[2024-08-26] MEDS: SENNOSIDES 8.6 MG TABLET 17.2 MG PO (21:55)
[2024-08-26] MEDS: DOCUSATE 100 MG CAPSULE PO (21:55)
[2024-08-26] MEDS: OXYCODONE IR 5 MG TABLET PO (22:36)
[2024-08-27] MEDS: OXYCODONE IR 10 MG TABLET PO ×3 (01:16→11:00)
[2024-08-27 02:00] VITALS: BP 159/87; PULSE 73; RESP 18; TEMP 36.2; O2SAT 98
--- NOTE | 2024-08-27 03:45 | PC.NURSE ---
Multiple times through this shift, pt was able to roll self & stand at side of bed with walker to use urinal, following lumbar spine precautions with minimal cuing.
[2024-08-27] MEDS: CEFAZOLIN 2 GM/100 ML PREMIX 100 ML IV (05:39)
[2024-08-27] MEDS: OXYCODONE IR 5 MG TABLET PO (05:44)
[2024-08-27] MEDS: ACETAMINOPHEN 325 MG TABLET 650 MG PO (05:44)
[2024-08-27 06:07] LABS: Hematocrit 46.4 % (41-53); Hemoglobin 15.8 g/dL (13.5-17.5)
[2024-08-27] MEDS: methocarbamoL 500 MG TABLET PO ×2 (06:44→11:00)
[2024-08-27 08:00] VITALS: BP 171/80
--- NOTE | 2024-08-27 08:32 | OT.IP.EVAL ---
Current Diagnoses Spondylolisthesis, lumbar region (08/26/24) Arthrodesis status (08/26/24) Surgery Performed Operation Date: 08/26/24 13:45 Actual Procedures p L5-S1 TLIF L4-S1 PSF with instrumentation - Joy Saez MD Past Medical History (Last Updated 08/21/24 @ 13:40 by Angie Greene, RN) Arthritis CAD (coronary artery disease) Excessive daytime sleepiness HLD (hyperlipidemia) Hypertension Impaired fasting glucose Lumbar pain with radiation down both legs Non-STEMI (non-ST elevated myocardial infarction) (11/2013) Normal cardiac ejection fraction (06/10/24) Obstructive sleep apnea of adult Primary insomnia Sciatica Tobacco dependence due to cigarettes Surgical History (Last Updated 08/21/24 @ 08:38 by Angie Greene, RN) History of lumbar spinal fusion (11/15/21) History of total left hip replacement (04/2022) S/P CABG (coronary artery bypass graft) (2013) Occupational Therapy Inpatient Evaluation/Re-Eval M1 PT/OT-IP Prior Functional Status Start: 08/27/24 08:50 Freq: NEEDED Status: Active Protocol: Document 08/27/24 10:26 CGR (Rec: 08/27/24 10:38 CGR [id number]) Medical Review Prior Functional Status Medical History Reviewed Yes Diet/Fluid Consistency Regular Communication WNLs Mobility and Gait I, 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 Social History Household Members none Living Arrangements House Number of Floors (Floors) One Floor Number of Stairs To Enter/Railing? Pt to d/c home with his mother and sisters to home with no steps for a couple of days. Pt also has no steps at his home in [place]. Home Environment High Toilet,Walk in Shower Home Equipment Front Wheel Walker,Hand Held Shower,Grab Bars Near Toilet, Grab Bars In Shower Employment Status Retired Additional Social History Comment Pt's sister is a nurse and will be staying with patient at his mothers house for a few days for Thanksgiving. M2 OT-IP Current Condition Start: 08/27/24 10:25 Freq: Status: Active Protocol: Document 08/27/24 10:26 CGR (Rec: 08/27/24 10:38 CGR [id number]) Occupational Therapy Current Condition Current Condition Evaluation Date 08/27/24 Treatment Diagnosis L4-5 and L5-S1 Diagnosis Onset Date 08/26/24 Post Operative Precautions Lumbar Precautions Log Roll,No Twisting,Limit Bending,Lifting Restriction of 10 lbs,Gait Belt above Incisional Area M3 OT- IP Subjective and Pain Start: 08/27/24 10:25 Freq: Status: Active Protocol: Document 08/27/24 10:26 CGR (Rec: 08/27/24 10:38 R [id number]) OT- Subjective Occupational Therapy Visit Type Type Initial Evaluation Visit Start Time 07:56 Visit Stop Time 08:32 OT Pain Assessment Pain When Pain Assessed At Rest Pain Present Pain Present Pain Reported Location Left Hip Intensity 4 Scale Used Numeric (0 - 10) Management Techniques Modification of Treatment,Re- positioning,Timing of Activity with Medications M4 OT- IP ADL's Start: 08/27/24 10:25 Freq: Status: Active Protocol: Document 08/27/24 10:26 CGR (Rec: 08/27/24 10:38 R [id number]) OT [id number] Comments OT Self-Feeding Comments Not meal time OT ADL-Grooming General Evaluation Grooming Ability Independent Areas Needing Assistance Face Washing Comments OT Grooming Comments standing at sink OT ADL-Oral Care General Eval Oral Care Ability Independent Areas of Assistance Brushing Teeth Comments Oral Care Comments standing at sink OT ADL-Dressing General Eval Upper Body Dressing Ability Independent Lower Body Dressing Ability Standby Assistance Areas Needing Assistance Button-Up Shirt/Blouse, Underpants/Brief,Pants/Shorts, Socks,Shoes Assistive Devices Dressing Assistive Devices Auditing Manager,Sock Aid Comments OT Dressing Comments Pt educated on use of sock aid and cna caregiver for LB dressing and performed without assist after demonstration. Pt is dressed and ready for discharge. OT ADL-Toileting General Evaluation Toileting Ability Standby Assistance Comments OT Toileting Comments standing at toilet for urination. OT ADL-Bathing Comments OT Bathing Comments not performed M5 OT- IP IADL's Start: 08/27/24 10:25 Freq: Status: Active Protocol: Document 08/27/24 10:26 CGR (Rec: 08/27/24 10:38 R [id number]) OT-Instrumental Activities of Daily Living Deficits IADL Deficits Identified No Deficits Home Safety Awareness Awareness of Need for Assistance at Home Good Awareness Ability to Problem Solve Emergency Able to Problem Solve Situations Medication Management Medication Management No Deficits Identified Money Management Money Management No Deficits Identified Meal Preparation Meal Preparation No Deficits Identified Retention Specialist Retention Specialist No Deficits Identified Driving Driving Comments 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 OT- IP Functional Cognition Start: 08/27/24 10:25 Freq: Status: Active Protocol: Document 08/27/24 10:26 CGR (Rec: 08/27/24 10:38 R [id number]) Cognitive Factors Limiting Selfcare Function Cognitive Ability Level of Alertness Alert Patient Orientation Name,Age,Birthday,Month,Date, Year,Day of Week,Place, Situation Attention Span Ability Capable of Focused Attention, Capable of Sustained Attention Ability to Follow Commands Able to Follow Multi-Step Commands OT- Vision and Hearing OT- Hearing Assessment OT- Hearing Assessment WFL OT- Vision Assessment Visual Acuity WFL,Glasses For Reading Visual Attentiveness WFL Occular Pursuits WFL Visual Convergence WFL M7 OT- IP Mobility and Balance Start: 08/27/24 10:25 Freq: Status: Active Protocol: Document 08/27/24 10:26 CGR (Rec: 08/27/24 10:38 R [id number]) OT- Bed Mobility Assessment Rolling Type of Rolling Log Rolling,Roll to Left Level of Assistance Contact Guard Assistance, Minimal Assistance Supine to Sit Supine to Sit Assist Standby Assistance Sit to Supine Sit to Supine Assist Standby Assistance Scooting Scooting to Edge of Bed Standby Assistance OT-Transfer Assessment Sit to and From Stand Sit to and from Stand Independent,Standby Assistance Transfers Transfer Ability Independent,Standby Assistance Technique Transfer Destination Bed,Chair Transfer Technique Stand Step Pivot Devices Transfer Assistive Devices Gait Belt,Front Wheeled Walker Comments Mobility Comments Pt performed log roll x2 for proper form. Pt states understanding after practicing . Pt then ambulated to toilet for standing urination then to sink for ADLs before sitting in chair for dressing with DME . Pt left sitting up in chair at end of session. OT- Gait Assessment Gait Gait Assistance Required: Standby Assistance Assistive Devices Assistive Device Gait Belt,Front Wheeled Walker Comments Gait Ability Comments Mobility around the room OT- Balance Assessment Sitting Balance and Reactions Static Sitting Balance Ability Normal Dynamic Sitting Balance Ability Normal M8 OT- IP Objective Assessments Start: 08/27/24 10:25 Freq: Status: Active Protocol: Document 08/27/24 10:26 CGR (Rec: 08/27/24 10:38 CGR [id number]) OT Gross Range of Motion Upper Extremity Range of Motion Assessment Within Functional Limits OT Strength Upper Extremity Strength Assessment Within Functional Limits Comments Strength Comments 4/5 OT- Coordination Assessment Upper Extremity Finger to Nose Test Within Functional Limits Finger Tapping Test Within Functional Limits Comments Coordination Comments Pt is slightly shaky with fine motor, also seen while pt was doing up buttons on his shirt . OT Sensation Assessment Edema Edema Absent M9 OT- IP Assessment and Plan Start: 08/27/24 10:25 Freq: Status: Active Protocol: Document 08/27/24 10:26 CGR (Rec: 08/27/24 10:38 CGR [id number]) OT Summary Assessment and Plan Potential Rehabilitation Potential Excellent Analytic Complexity at Evaluation Low Summary OT Impairments Pain,Functional Mobility, Dressing,Toileting,Bathing, Toilet Transfers,Shower Transfers,Activity Tolerance Progress Towards Goals Slow Progress due to Pain Assessment Summary Pt presents as a low complexity evaluation s/p admit for L4-5 and L5-S1 TLIF. Pt is progressing well and dressed using DME to be ready for discharge home today. No further needs at this time. Goals Dressing Goal Independent,Auditing Manager,Sock Aid Toileting Goal Independent Bathing Goal Independent Toilet Transfer Goal Independent Shower Transfer Goal Independent Days to Meet Goals 1 Frequency of Treatment Other frequency 5x a week Treatment Plan OT Treatment Plan ADL Training,Functional Mobility,Patient/Family Education,Discharge Planning Other Treatment Recommendations and Next Shower if still here Treatment Focus Discharge Recommendations OT Discharge Recommendations Home with Assistance Transportation Needs at Discharge Private Vehicle
[2024-08-27 09:09] VITALS: BP 171/80; PULSE 73
[2024-08-27] MEDS: buPROPion SR 150 MG TAB PO (09:09)
[2024-08-27] MEDS: PRAVASTATIN 20 MG TABLET 80 MG PO (09:09)
[2024-08-27] MEDS: DOCUSATE 100 MG CAPSULE PO (09:09)
[2024-08-27] MEDS: LOSARTAN 50 MG TABLET 100 MG PO (09:09)
[2024-08-27] MEDS: METOPROLOL ER 50 MG TABLET 25 MG PO (09:09)
--- NOTE | 2024-08-27 09:28 | PT.IIE ---
Current Diagnoses Spondylolisthesis, lumbar region (08/26/24) Arthrodesis status (08/26/24) Surgery Performed Operation Date: 08/26/24 13:45 Actual Procedures p L5-S1 TLIF L4-S1 PSF with instrumentation - Joy Saez MD Surgical History (Last Updated 08/21/24 @ 08:38 by Angie Greene, RN) History of lumbar spinal fusion (11/15/21) History of total left hip replacement (04/2022) S/P CABG (coronary artery bypass graft) (2013) Medical History (Last Updated 08/21/24 @ 13:40 by Angie Greene, RN) Arthritis CAD (coronary artery disease) Excessive daytime sleepiness HLD (hyperlipidemia) Hypertension Impaired fasting glucose Lumbar pain with radiation down both legs Non-STEMI (non-ST elevated myocardial infarction) (11/2013) Normal cardiac ejection fraction (06/10/24) Obstructive sleep apnea of adult Primary insomnia Sciatica Tobacco dependence due to cigarettes Physical Therapy Inpatient Evaluation/Re-Eval M1 PT/OT-IP Prior Functional Status Start: 08/27/24 08:50 Freq: NEEDED Status: Active Protocol: Document 08/27/24 09:08 MB (Rec: 08/27/24 09:28 MB [id number]) Medical Review Prior Functional Status Medical History Reviewed Yes Diet/Fluid Consistency Regular Communication WNLs Mobility and Gait I, 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 Pt to d/c home with his mother and sisters to home with no steps for a couple of days Home Environment High Toilet,Walk in Shower Home Equipment Front Wheel Walker,Hand Held Shower,Grab Bars Near Toilet, Grab Bars In Shower Employment Status Retired M2 PT-IP Current Condition Start: 08/27/24 08:50 Freq: NEEDED Status: Active Protocol: Document 08/27/24 09:08 MB (Rec: 08/27/24 09:28 MB [id number]) Physical Therapy Current Condition Current Condition Evaluation Date 08/27/24 Treatment Diagnosis L4-S1 TLIF with hardware removal M3 PT-IP Subjective Start: 08/27/24 08:50 Freq: NEEDED Status: Active Protocol: Document 08/27/24 09:08 MB (Rec: 08/27/24 09:28 MB [id number]) Subjective Physical Therapy Visit Type Type Initial Evaluation Visit Start Time 09:08 Visit Stop Time 09:18 Number of LAST CODE STRIPER Visits 0 Physical Therapy Visit Comments Patient Comments Pt is agreeable to PT. Therapy Pain Assessment Pain When Pain Assessed At Rest Pain Present Pain Present Pain Reported M4 PT-IP Mobility and Gait Start: 08/27/24 08:50 Freq: NEEDED Status: Active Protocol: Document 08/27/24 09:08 MB (Rec: 08/27/24 09:28 [id number]) PT-Bed Mobility Assessment Rolling Type of Rolling Roll to Right,Roll to Left, Bilateral Level of Assist Standby Assistance Supine to Sit Supine to Sit Standby Assistance Sit to Supine Sit to Supine Standby Assistance Scooting Scooting to Edge of Bed Standby Assistance PT-Transfer Assessment Sit to and From Stand Sit to and from Stand Standby Assistance Equipment Transfer Assistive Device Gait Belt,Front Wheeled Walker Orthotic/Prosthetic Devices or Brace: No Transfers Transfer Destination Bed Transfer Technique Ambulation Transfer Ability Level of Assist Standby Assistance Comments Mobility Comments Cues for log rolling in and OOB Gait Assessment Gait Gait Assistance Required: Standby Assistance Distance (Feet) 200 Able to Maintain Weight Bearing Status Yes During Gait Assistive Devices Assistive Device Gait Belt,Front Wheeled Walker Orthotic/Prosthetic Devices or Brace: No Gait Deviations General Gait Pattern Antalgic Factors Limiting Gait Function Factors Limiting Gait Function Pain Comments Gait Comments Antalgic gait and walker is too high and PT lowers after gait and his walker is lower at home PT-Balance Assessment Sitting Balance and Reactions Static Sitting Balance Ability Good Dynamic Sitting Balance Ability Good Standing Balance and Reactions Static Standing Balance Ability Good Dynamic Standing Balance Ability Good Device Used RW M5 PT-IP Objective Assessments Start: 08/27/24 08:50 Freq: NEEDED Status: Active Protocol: Document 08/27/24 09:08 MB (Rec: 08/27/24 09:28 [id number]) Orientation Orientation/Cognition Level of Alertness Alert Orientation Name,Age,Birthday,Month,Date, Year,Day of Week,Place, Situation Language Function Ability No Deficits Noted Safety Awareness Decreased Safety Awareness Memory Description No Deficits Noted Gross Range of Motion Upper Extremity ROM Impairments Defer to OT Lower Extremity ROM Assessment Within Functional Limits Strength Lower Extremity Strength Assessment Within Functional Limits Coordination Assessment Gross Coordination Gross Coordination Impaired Assessment Coordination Comments Slow post-op Sensation Assessment Comments Sensation Comments Denies paresthesias Muscle Tone Muscle Tone WNL Yes M6 PT-IP Treatment Start: 08/27/24 08:50 Freq: NEEDED Status: Active Protocol: Document 08/27/24 09:08 (Rec: 08/27/24 09:28 [id number]) Physical Therapy Treatment Education Education Provided Precautions Other Treatments Other Treatment Performed Pt verbalizes 3/3 back precautions without cues but requires cues for log rolling M7 PT-IP Assessment and Plan Start: 08/27/24 08:50 Freq: NEEDED Status: Active Protocol: Document 08/27/24 09:08 (Rec: 08/27/24 09:28 [id number]) PT Summary Assessment and Plan Potential Rehabilitation Potential Excellent Status of Condition at Evaluation Evolving Summary Impairments Pain,Balance,Bed Mobility, Transfers,Gait Progress Towards Goals Safe For Discharge Assessment Summary Pt is a 64 y/o male moving well POD1 L4-S1 TLIF with hardward removal. He recalls back precautions but requires cues for log rolling. He is d/ cing home with family. No further acute PT needs. Frequency of Treatment Frequency Of Treatment Discharge Precautions Lumbar Precautions Log Roll,No Twisting,Limit Bending,Lifting Restriction of 10 lbs,Gait Belt above Incisional Area Recommendations To Nursing Amount of Assist Needed Standby Assistance Discharge Recommendations PT Discharge Recommendations Home with Assistance, Outpatient PT Transportation Needs at Discharge Private Vehicle
--- NOTE | 2024-08-27 09:34 | PM.DS.1 ---
History of Present Illness History of Present Illness Date Patient Seen: 08/27/24 Time Patient Seen: 09:34 Chief complaint: Translaminar Interbody Fusion/Laminotomy 08/26 Narrative: Operative Date/Time/Diagnoses Date of procedure: 08/26/24 Time of procedure: 15:00 Pre-op diagnosis: 1. L5-S1 anterolisthesis 2. L5-S1 foraminal stenosis 3. History of L4-5 fusion with instrumentation. Post-op diagnosis: same Procedure & Clinicians Procedure: 1. L5-S1 posterolateral and posterior interbody fusion 2. L5-S1 posterior interbody cage placement 3. L4-5 posterior non-segmental instrumentation removal 4. L4-5 revision laminectomy with exploration of fusion 5. L4-5, L5-S1 posterior segmental instrumentation with pedicle screw placement 6. L4-5 posterolatearl fusion 7. [employer] of bone marrow from iliac crest through a separate incision 8. Utilization of microsurgical technique and operating microscope Same procedure as scheduled: Yes Indications: Patient has been having chronic back pain and worsening lumbar radiculopathy. Patient was found to have L5-S1 anterolisthesis with history of L4-5 fusion with instrumentation. Patient has bilateral foraminal stenosis with correlating symptoms. Patient failed multiple conservative management with worsening pain weakness and numbness in her lower extremity. Patient has been having difficulty performing activity of daily living. After discussing risks benefits of treatment options, patient elected proceed with surgery. Surgeon: Joy Saez Tray Drier: Jaz Dykes Click Yes if Unassisted: No Anesthesia Type: General Operative Notes Closure Type: primary Specimen(s): none sent Prosthetic devices, grafts, tissues, transplants, or devices: Globus revolve screws, Rise cage Estimated Blood Loss (mL): 50 Blood products transfused: none Discharge Providers Provider Date of admission: 08/26/24 14:48 Discharge Date: 08/27/24 Primary care physician: Linda Leroy MD Consults: 08/26/24 18:40 Consult to Occupational Therapy Evaluate & Treat Comment: Physician Instructions: Evaluate and treat Consult to Physical Therapy Evaluate & Treat Comment: Physician Instructions: Evaluate and Treat Discharge provider: Jaz Dykes PA-C Summary Hospital Course Discharge Diagnosis: L5-S1 anterolisthesis, L5-S1 foraminal stenosis, History of L4-5 fusion with instrumentation; s/p L5-S1 lumbar fusion w/ posterior instrumentation from L4-S1 Hospital Course: Mr Sukhjinder's hospital course was unremarkable. On the morning of PPOD# 1, he was feeling well, was fully dressed and wanted to go home. He was eating and voiding without difficulty and his pain was well-controlled with oral medication. He worked with PT and did very well; they had no concerns with discharge. His sister is coming from [facility] to help him. Exam Vital Signs (past 8 hours): - 08/27/24 02:00 08/27/24 08:00 08/27/24 09:09 Temperature 97.1 F L Pulse Rate 73 73 Respiratory Rate 18 Blood Pressure 159/87 H 171/80 H 171/80 H Pulse Oximetry 98 Oxygen Flow Rate 4 08/27/24 09:09 Temperature Pulse Rate 73 Respiratory Rate Blood Pressure 171/80 H Pulse Oximetry Oxygen Flow Rate Oxygen Delivery Method Nasal Cannula Oxygen Flow Rate 4 Narrative Exam Narrative: 5/5 strength in hip flexors, quadriceps, hamstrings, PF, DF, EHL bilaterally. Sensation to light touch intact throughout BLE, calves soft and compressible. Dressing placed intraoperatively w/ old bloody drainage on the left side; no active drainage. Objective Labs 08/27/24 05:35 Labs: Laboratory Results - last 24 hr 08/27/24 05:35 Hgb 15.8 Hct 46.4 PFSH Medical History (Updated 08/21/24 @ 13:40 by Angie Greene RN) Normal cardiac ejection fraction (06/10/24) Non-STEMI (non-ST elevated myocardial infarction) (11/2013) CAD (coronary artery disease) Arthritis Sciatica HLD (hyperlipidemia) Impaired fasting glucose Excessive daytime sleepiness Lumbar pain with radiation down both legs Tobacco dependence due to cigarettes Hypertension Primary insomnia Obstructive sleep apnea of adult Surgical History (Updated 08/27/24 @ 09:41 by Jaz Dykes PA-C) History of total left hip replacement (04/2022) History of lumbar spinal fusion (11/15/21) S/P CABG (coronary artery bypass graft) (2013) Social History marital status: number of children: 1 household members: none lives independently: Yes caregiver/support person: No occupational status: employed 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 Discharge Plan Discharge Plan Patient Disposition: Home Discharge orders & Medications Prescriptions: New oxycodone 5 mg Tablet 5 mg PO Q4-6H PRN (Reason: Pain, Moderate (4-6)) Qty: 40 0RF Continued losartan 50 mg Tablet 50 mg PO DAILY metoprolol succinate 50 mg Tablet Extended Release 24 Hr 25 mg PO QAM aspirin 81 mg Capsule 81 mg PO BID acetaminophen [Tylenol] 325 mg Tablet 650 mg PO BID bupropion HCl 150 mg tablet sustained-release 12 hr 150 mg PO DAILY pravastatin 80 mg tablet 80 mg PO DAILY losartan 25 mg tablet 25 mg PO QPM (DME) Respironics Dreamstation CPAP Qty: 1 Dose Instruction: As directed Patient Comments: Pressure: 5-10 cmH2O DME: [place] Rx Instructions: As directed Discontinued ibuprofen [Advil] 200 mg Tablet 400 mg PO DAILY Follow up/Referrals: Linda Leroy MD [Primary Care Provider] - Joy Saez MD [Physician] - 09/15/24 9:10 am ([facility] office in [place]) Diet/Activity/Treatments Diet: Diet as Tolerated Activity: No deep bending or twisting at the waist. No lifting more than 10 pounds. Skin/Wound/Dressing Care Report to your healthcare provider any signs of infection, such as:: chills, fever, night sweats, unusual drainage and unusual redness Dressing: May shower; keep dressings as dry as possible. If dressings become wet or dirty, may remove and replace with clean, dry gauze. No bathing or otherwise soaking incisions. Do not apply any creams, lotions, or ointments to incisions. Visit Report/Discharge Packet Instructions: DI for Prescription Opioid Use, DI for Transforaminal Lumbar Interbody Fusion Stand Alone Forms: Patient Portal/API, Stroke Signs & Symptoms, Surgery Discharge Discharge Data Primary Care Provider: Linda Leroy Attending Provider: Joy Saez Admit Date/Time: 08/26/24 14:48
[2024-08-27] MEDS: OXYCODONE/APAP 5/325 PREPACK 1 BOTTLE MISC (10:07)
--- NOTE | 2024-08-27 11:57 | CM.DANOTE ---
Initial DCP Assessment Visit Note Reviewed EMR and team rounds for pt's medical status and updates. Met with pt at bedside to introduce self and role, pt was found to be alert/oriented, laying flat, expressing that his pain was well managed at this time. He lives independently in his own home in [place] alone. His sister will be arriving early this afternoon in order to transport him home. No CM needs are identified for assistance at this time. Payor: Lucia [facility]CHANA[facility] Attending: Dr. Saez Pt is a 64 year-old M post-op day 1 from a TLIF lumbar surgery. He has a hx of chronic and worsening lower back pain that radiates down both of his legs. Conservative efforts such as tylenol and Advil have not provided lasting relief. He did have a bilateral surgery on his L3-4 on 06/08/24 that also did not have lasting benefit. He shares that his mother and sister will be caring for him during his initial home recovery, and that he has all necessary DME in place that was recommended by Ortho. Discharge Planning/Care Management CM Discharge Assessment Start: 08/27/24 11:55 Freq: Status: Active Protocol: Document 08/27/24 11:55 DPL (Rec: 08/27/24 11:57 DPL [id number]) Discharge Planning Assessment Assigned Director Work RAMU Raya Advance Directives? Yes Advance Directives on File No History Provided By Patient,Medical Record Has Patient been admitted in last 30 No days? Prior Living Arrangements House Household Members none Type of transporation used prior to Drives own vehicle admit Is patient alert and oriented? Yes Comment N/A Caregiver for Another No DME Already Rented / Owned Elevated Toilet Seat,FWW / Walker Patient/Family Preference OP PT Therapy Barriers to Discharge No Discharge Plan Home Community Services Physical Therapy Transportation Arrangement sister Referrals Initiated None needed Whiteboard Updated in Patient Room with Yes name and ext. # of Director Work Review Status In Process Please Provide Date Initial DC 08/27/24 Assessment Was Performed Pre-Anesthesia Assessment Start: 08/21/24 08:31 Freq: Status: Discharge Protocol: Document 08/21/24 08:31 LB (Rec: 08/21/24 09:29 LB [id number]) Pre-Anesthesia Assessment PAC Comment 08/21/24 Phone assessment. Patient Information Reviewed Via Phone Assessment Assessment Completed With Patient Diagnostic Results BMP/CMP,CBC,EKG Comment Requested results from [facility]. Primary Care Provider Linda Leroy Seen Specialist in Last 12 Months Yes Specialist Seen Orthopedist Primary Language Wolof Preferred Language Wolof Cashier Self Service Gasoline Required No Height 165.1 cm Weight 85.729 kg Body Mass Index (BMI) 31.4 Hearing Ability Normal Visual Impairment No Limitations Visual Assist None Dentition Type Full- Upper & Lower Barriers to Learning None Other Aids No Hx Anesthesia Reactions No Hx Family Anesthesia Reaction No Hx Malignant Hyperthermia No Hx Blood Transfusions No Anesthesia Review Requested No Sports Activities Foul Judge No alcohol intake former Alcohol Intake Frequency Other: Quit 8 months ago. Smoking Status Current every day smoker Tobacco type cigarettes Substance Use Type does not use Pain Present Pain Reported Comment Chronic back pain. Musculoskeletal Symptoms Back Pain,Joint Pain,Radiating Pain into Limb History of Falling (Recent or History of Yes ) Comment fall at work 6 months ago. Patient is completely paralyzed or No completely immobile Mental Status Oriented to own ability Comment Pt will obtain walker prior to surgery. Is patient on oxygen? No Does patient have HAMEED/SOB No Hx Sleep Apnea Yes CPAP/BIPAP use prescribed not used Will Bring CPAP/BIPAP DOS No Currently Taking a Beta Obi Yes: Metoprolol 25mg daily. Can You Climb a Flight of Stairs Without Yes SOB Hx Chest Pain Yes: Denies anything current Hx SOB Yes: Denies anything current Hx Syncope or Dizziness Yes: Denies anything current Anti-Coagulant Therapy Yes: Aspirin 81mg BID. Advised to hold 08-22-[address] Moreira . Has a Case Preparer And Liner Yes Case Preparer And Liner name Dr Moreira [facility]. Cardiac Testing Yes: Echo 05/12/24, Stress test 06/10/24. Hx Pacemaker/ICD No Dysphagia No Chronic UTI No Urinary Catheter Present No Hx Urinary Self Catheterization No Diabetes No Hx Drug Resistant Organism No Presence of External or Internal Medical Yes: HX of CABG, lumbar Devices hardware, Left hip. Have you had any close contact with No someone diagnosed with COVID-19? Are you experiencing any of these No symptoms symptoms? Received a COVID vaccine? Yes: x2 boosters Comment Denies covid last 2 months. Lives With none Current Living Arrangements House Number of Floors (Floors) One Floor Number of Stairs To Enter/Railing? no stairs. Support System Sibling(s) Does the Patient Have Assistance After Yes Surgery Patient Discharge Plan Description Return Home Additional comment Unsure of LOS. Feels Safe in Current Environment Yes Do you have a plan to hurt yourself or No Plan others? Do You Have Any Spiritual Beliefs That No May Affect Your HC Choices? Do You Have Any Cultural Practices That No May Affect Your HC Choices? Emergency Contact Name Christine Platt (sister) Emergency Contact Advance Directives? No PAC Instructions Assistance for 24 hours post- op,Durable medical equipment, Medications to take/avoid,No ETOH/petroleum product on skin DOS,NPO,Post-op transportation,Pre-surgical wash,Sensory aids,Sturdy shoes /comfortable clothes,Do not bring valuables and remove jewelry
== END 2024-08-27 11:15 | disposition home or self-care (01) ==
LOC: OR 11:49 → AC 08-27 08:50
PROVIDERS: PCP Family Medicine; Referring Provider Orthopaedic Surgery Orthopaedic Surgery of the Spine; Visit Provider Orthopaedic Surgery Orthopaedic Surgery of the Spine
PROC: (CPT 22633; principal; 2024-08-26 13:45)
DX: M43.16 Spondylolisthesis, lumbar region (principal); Z98.1 Arthrodesis status; M48.061 Spinal stenosis, lumbar region without neurogenic claudication; M54.16 Radiculopathy, lumbar region
CPT/HCPCS: 22633; 63052; 20939; 22853; 22842; 63042; 22612; 36415; 72100; 76000; 85014; 85018; 97161; 97165; 97535; G0378; A9270; C1713; C1821; C9290; J0171; J0330; J0690; J1100; J1171; J2250; J2405; J2704; J3010